=== PATIENT | male | born 1935 | race African-American/Black ===

== ENCOUNTER 2017-01-10 09:33 | Inpatient (IN) | payer MEDICARE, OTHER ==
[~2017-01-10] VITALS: Ht 170.2 cm; Wt 72.6 kg
[~2017-01-10 09:33] MED LIST: CEPHALEXIN500 MG ORAL; CORDARONE200 M1 ORAL; COUMADIN2.5 MG ORAL; FINASTERIDE5 MG PO; LOSARTAN POTAS100 MG; LOSARTAN POTASS25 MG ORAL; METOPROLOL TART50 M1; METOPROLOL TART50 M1 ORAL; MIDODRINE HCL5 MG ORAL; PRO-AMATINE10 MG ORAL; PRO-AMATINE2.5 MG ORAL; SIMVASTATIN20 MG; TAMSULOSIN HCL0.4 MG; WARFARIN SODIUM2 MG PO
[2017-01-10 10:40] VITALS: BP 193/92
[2017-01-10 11:02] LABS: BASOPHILS % (AUTO) 0.7 % (0.0-2.0); EOSINOPHILS % (AUTO) 0.3 % (0.0-3.0); LYMPHOCYTES % (AUTO) 14.8 % (20.0-45.0); MEAN CORPUSCULAR HEMOGLOBIN 30.8 PG (27.0-31.0); MEAN CORPUSCULAR HGB CONC 32.5 G/DL (32.0-36.0); MEAN CORPUSCULAR VOLUME 95 FL (80-99); MEAN PLATELET VOLUME 7.8 FL (6.5-10.1); MONOCYTES % (AUTO) 10.8 % (1.0-10.0); NEUTROPHILS % (AUTO) 73.5 % (45.0-75.0); PLATELET COUNT 164 K/UL (150-450); RED BLOOD COUNT 4.32 M/UL (4.70-6.10); RED CELL DISTRIBUTION WIDTH 12.9 % (11.6-14.8); WHITE BLOOD COUNT 7.3 K/UL (4.8-10.8)
[2017-01-10 11:04] LABS: INR 1.1 (0.9-1.1); PROTHROMBIN TIME 11.1 SEC (9.30-11.50)
[2017-01-10] MEDS ORDERED: UNOBMED (11:08)
[2017-01-10 11:10] LABS: ALANINE AMINOTRANSFERASE 9 U/L (3-41); ALBUMIN/GLOBULIN RATIO 1.1 (1.0-2.7); ANION GAP 15 (5-15); ASPARTATE AMINO TRANSFERASE 14 U/L (5-40); CALCIUM 9.2 mg/dL (8.6-10.2); CARBON DIOXIDE 27 mEQ/L (20-30); CHLORIDE 101 mEQ/L (98-107); CREATININE 1.1 mg/dL (0.7-1.2); HEMOLYSIS 6; LIPASE 11 U/L (< 60); POTASSIUM 3.6 mEQ/L (3.4-4.9); SODIUM 143 mEQ/L (135-145); TOTAL PROTEIN 6.9 g/dL (6.6-8.7); TROPONIN I < 0.30 ng/mL (<=0.30)
--- NOTE | 2017-01-10 11:40 | Emergency Room Report ---
History of Present Illness General Chief Complaint: Dizziness Source: Patient, Family Member, EMS Present Illness HPI Patient present with complaints of fall Initially unclear history paramedics reported patient was having dizziness Speaking to the family at this time She reports of the patient's had a questionable syncopal versus fall episode The family had made the patient's breakfast and come back into the room and found the patient on the ground Patient usually is able to become more ambulatory At this time require further assistance Patient here does have underlying significant dementia Otherwise no focal weakness History of present illness significantly limited Allergies: Coded Allergies: No Known Allergies (Unverified , 10/08/14) Patient History Past Medical History: see triage record Pertinent Family History: none Reviewed Nursing Documentation: PMH: Agreed, PSxH: Agreed Nursing Documentation-PMH Past Medical History Deferred: No Family Available Past Medical History: No History, Except For Hx Cardiac Problems: Yes Hx Hypertension: Yes Hx Pacemaker: Yes Hx Cancer: No Hx Gastrointestinal Problems: No Hx Neurological Problems: Yes Hx Dementia: Yes Hx Syncope: Yes Review of Systems All Other Systems: negative except mentioned in HPI Physical Exam Vital Signs Date Time Temp Pulse Resp B/P Pulse Ox O2 Delivery O2 Flow Rate FiO2 01/10/17 09:28 97.7 63 18 182/84 100 Room Air Sp02 EP Interpretation: reviewed, normal General Appearance: no apparent distress Head: normocephalic, atraumatic Eyes: bilateral eye EOMI, bilateral eye PERRL ENT: hearing grossly normal, normal pharynx, TMs + canals normal, uvula midline Neck: full range of motion, supple, no meningismus, no bony tend Respiratory: lungs clear, normal breath sounds, no rhonchi, no respiratory distress, no retraction, no accessory muscle use Cardiovascular #1: normal peripheral pulses, regular rate, rhythm, no edema, no gallop, no JVD, no murmur Gastrointestinal: normal bowel sounds, non tender, soft, no mass, no organomegaly, non-distended, no guarding, no hernia, no pulsatile mass, no rebound Genitourinary: no CVA tenderness Musculoskeletal: other - The patient does not follow commands but no obvious focal weakness Neurologic: responsive, sensory intact Psychiatric: mood/affect normal Skin: normal color, no rash, warm/dry, palpation normal Lymphatic: normal inspection, no adenopathy Medical Decision Making Diagnostic Impression: Primary Impression: Syncope Additional Impressions: Fall Pacemaker ER Course Patient is a fairly complex patient with multiple differential to consideration including but not limited to cardiac cardiopulmonary and vascular emergencies Patient at this time has a paced rhythm Blood pressure is appropriate Blood work baseline is appropriate Patient will require further inpatient care possible interrogation of the pacemaker and further eval Labs Test 01/10/17 10:20 01/10/17 11:38 White Blood Count 7.3 K/UL (4.8-10.8) Red Blood Count 4.32 M/UL (4.70-6.10) Hemoglobin 13.3 G/DL (14.2-18.0) Hematocrit 41.0 % (42.0-52.0) Mean Corpuscular Volume 95 FL (80-99) Mean Corpuscular Hemoglobin 30.8 PG (27.0-31.0) Mean Corpuscular Hemoglobin Concent 32.5 G/DL (32.0-36.0) Red Cell Distribution Width 12.9 % (11.6-14.8) Platelet Count 164 K/UL (150-450) Mean Platelet Volume 7.8 FL (6.5-10.1) Neutrophils (%) (Auto) 73.5 % (45.0-75.0) Lymphocytes (%) (Auto) 14.8 % (20.0-45.0) Monocytes (%) (Auto) 10.8 % (1.0-10.0) Eosinophils (%) (Auto) 0.3 % (0.0-3.0) Basophils (%) (Auto) 0.7 % (0.0-2.0) Prothrombin Time 11.1 SEC (9.30-11.50) Prothromb Time International Ratio 1.1 (0.9-1.1) Activated Partial Thromboplast Time 26 SEC (23-33) Sodium Level 143 mEQ/L (135-145) Potassium Level 3.6 mEQ/L (3.4-4.9) Chloride Level 101 mEQ/L (98-107) Carbon Dioxide Level 27 mEQ/L (20-30) Anion Gap 15 (5-15) Blood Urea Nitrogen 11 mg/dL (7-23) Creatinine 1.1 mg/dL (0.7-1.2) Estimat Glomerular Filtration Rate mL/min (>60) Glucose Level 107 mg/dL (74-106) Calcium Level 9.2 mg/dL (8.6-10.2) Total Bilirubin 0.4 mg/dL (0.0-1.2) Aspartate Amino Transf (AST/SGOT) 14 U/L (5-40) Alanine Aminotransferase (ALT/SGPT) 9 U/L (3-41) Alkaline Phosphatase 78 U/L (40-129) Total Creatine Kinase 118 U/L (38-174) Creatine Kinase MB 2.0 ng/mL (< 6.7) Creatine Kinase MB Relative Index 1.6 Troponin I < 0.30 ng/mL (<=0.30) Pro-B-Type Natriuretic Peptide 486 pg/mL (0-450) Total Protein 6.9 g/dL (6.6-8.7) Albumin 3.7 g/dL (3.5-5.2) Globulin 3.2 g/dL Albumin/Globulin Ratio 1.1 (1.0-2.7) Lipase 11 U/L (< 60) Urine Color Brown Urine Appearance Clear Urine pH 5 (4.5-8.0) Urine Specific [place] 1.025 (1.005-1.035) Urine Protein 2+ (NEGATIVE) Urine Glucose (UA) Negative (NEGATIVE) Urine Ketones 1+ (NEGATIVE) Urine Occult Blood 1+ (NEGATIVE) Urine Nitrite Negative (NEGATIVE) Urine Bilirubin 1+ (NEGATIVE) Urine Ictotest Negative Urine Urobilinogen 4 MG/DL (0.0-1.0) Urine Leukocyte Esterase 1+ (NEGATIVE) Urine RBC 2-4 /HPF (0 - 0) Urine WBC 0-2 /HPF (0 - 0) Urine Squamous Epithelial Cells Occasional /LPF Urine Bacteria Few /HPF (NONE) Urine Hyaline Casts 0-2 /LPF (NONE) Urine Mucus Few /LPF (NONE/OCC) EKG Diagnostic Results Rate: other Rhythm: other - paced ST Segments: no acute changes Rhythm Strip Diag. Results EP Interpretation: yes Rate: 60 Rhythm: no PVC's, no ectopy, other - paced Chest X-Ray Diagnostic Results EP Interpretation: Yes Findings: no consolidation, no effusion, no pneumothorax Number of Views: 1 CT/MRI/US Diagnostic Results CT/MRI/US Diagnostic Results : Impression CT head no acute disease Last Vital Signs Date Time Temp Pulse Resp B/P Pulse Ox O2 Delivery O2 Flow Rate FiO2 01/10/17 10:40 97.7 60 12 193/92 100 Room Air Status: improved Disposition: ADMITTED INPATIENT Condition: Serious Referrals: MEENA DOTSON (PCP) JOSE WAY D.O. Jan 10, 2017 11:40
--- NOTE | 2017-01-10 11:41 | Diagnostic Imaging Report ---
Indications: Dizziness and vertigo x3 days Technique: Spiral acquisitions obtained through the brain. Angled axial and coronal 5 x 5 mm slices were reconstructed. Total dose length product 1393 mGycm. CTDI vol(s) 7 mGy Comparison: None Findings: There is age-related enlargement of ventricles and extra-axial CSF spaces. Small focus of encephalomalacia is seen in the right posterior parietal lobe. No acute hemorrhage or edema. No mass effect or midline shift. Impression: Chronic and age-related changes, as described. Negative for acute intracranial bleed or mass effect The CT scanner at [facility] is accredited by the [employer] and the scans are performed using protocols designed to limit radiation exposure to as low as reasonably achievable to attain images of sufficient resolution adequate for diagnostic evaluation.
--- NOTE | 2017-01-10 11:45 | Diagnostic Imaging Report ---
Indication: Chest pain Technique: One view of the chest Comparison: none Findings: Patient is slightly rotated to the right. Lungs and pleural spaces are clear. Heart size is normal. Aorta is tortuous ectatic and calcified. Left chest pacemaker is again demonstrated. There is no significant change Impression: No acute process
[2017-01-10 11:54] LABS: APPEARANCE,URINE CLEAR; KETONES,URINE 1+ (NEGATIVE); LEUKOCYTE ESTERASE ,URINE 1+ (NEGATIVE); NITRITE,URINE NEGATIVE (NEGATIVE); PH,URINE 5 (4.5-8.0); PROTEIN,URINE 2+ (NEGATIVE); UROBILINOGEN,URINE 4 MG/DL (0.0-1.0)
[2017-01-10 12:03] LABS: BACTERIA,URINE FEW /HPF; SQUAMOUS EPITHELIAL CELL,UR OCCASIONAL /LPF (NONE/OCC); WBC,URINE 0-2 /HPF (0 - 0)
[2017-01-10 12:04] LABS: HYALINE CASTS, URINE 0-2 /LPF; ICTOTEST NEGATIVE; MUCUS,URINE FEW /LPF (NONE/OCC)
[2017-01-10 12:15] VITALS: BP 185/88
[2017-01-10 13:32] VITALS: BP 187/86
--- NOTE | 2017-01-10 15:53 | Diagnostic Imaging Report ---
Indication: PAIN, status post fall Technique: One view of the pelvis Comparison: None Findings: Bones are osteoporotic. No definite acute fractures. However, there is asymmetric rotation of the proximal femurs, somewhat raising concern for an occult fracture. No dislocations. Joint spaces are preserved. There are degenerative changes of the lumbosacral junction. The bottom of an inferior vena cava filter is incidentally noted Impression: No definite acute bony trauma. Note, however, that in elderly osteoporotic patients, nondisplaced hip or pelvic fractures can easily be occult. Asymmetric rotation of the proximal femurs also raises slight suspicion. Consider cross-sectional imaging if there is high clinical suspicion Osteoporosis Other findings as noted, including degenerative lumbar spondylosis, inferior vena cava filter
[2017-01-10 16:00] VITALS: BP 145/77
[2017-01-10] MEDS: Amiodarone 200mg tab ORAL SCH (16:49)
[2017-01-10] MEDS: Heparin 5000 units/ml inj SUBQ SCH ×2 (16:52→20:58)
[2017-01-10 20:00] VITALS: BP 163/102
[2017-01-10] MEDS: Tamsulosin 0.4mg cap ORAL SCH (20:54)
--- NOTE | 2017-01-10 22:59 | History and Physical Report ---
DATE OF ADMISSION: 01/10/2017 CHIEF COMPLAINT: Syncope, hypertensive urgency, and encephalopathy. HISTORY OF PRESENT ILLNESS: The patient is a pleasant 81-year-old male. He has a history of hypertensive heart disease, conduction system disease, status post pacemaker. He has a history of orthostatic hypotension and dementia. He presented from home with complaints of a syncopal episode. The patient is a poor historian. According to reports from the emergency room, the patient, and the paramedics, the patient had an episode of dizziness while talking with family members. He apparently had a possible syncopal episode. He was found on the ground. On evaluation in the emergency room, the patient was markedly hypertensive. He had a head CT, which showed only chronic changes, but no acute stroke. The patient on EKG had a paced rhythm. In light of his prior cardiac history, he is now admitted for further evaluation and care. PAST MEDICAL HISTORY: As above. PAST SURGICAL HISTORY: Pacemaker. CURRENT MEDICATIONS: Reconciled and reviewed. ALLERGIES: None. FAMILY HISTORY: None. SOCIAL HISTORY: Negative for tobacco, ethanol, or drugs. REVIEW OF SYSTEMS: General: No fevers or chills. HEENT: No headaches or visual changes. Cardiopulmonary: No chest pain or shortness of breath. History of conduction system disease, status post pacemaker. Gastrointestinal: No nausea or vomiting. Genitourinary: No urgency or frequency. Musculoskeletal: No joint pain or swelling. Neurologic: No evidence of seizures. PHYSICAL EXAMINATION: VITAL SIGNS: Temperature 98 degrees, blood pressure 193/92, pulse 60, and respirations 12. GENERAL: The patient is in no apparent distress. He is awake, alert, but is confused. Oriented only to person. HEENT: His pupils are equal, round, and reactive to light. Oropharynx is clear. Mucous membranes are moist. NECK: Supple. HEART: Regular rate and rhythm. LUNGS: Clear. ABDOMEN: Soft, nontender, and nondistended. EXTREMITIES: Without clubbing, cyanosis, or edema. LABORATORY DATA: White count 7, hemoglobin 13, hematocrit 41, and platelets of 164,000. Sodium 143, potassium 3.6, creatinine of 1.1, and glucose 107. Urine shows 0 to 2 WBCs. ASSESSMENT: This is a pleasant male admitted with complaints of syncope. 1. Syncope. 2. History of conduction system disease, status post pacemaker. 3. History of orthostasis. 4. Hypertensive emergency. 5. Dementia. PLAN: Admit to monitored bed. Cardiology consultation. Interrogate pacemaker. Monitor orthostatics. Consider hydration. We will continue outpatient cardiac regimen. The p.r.n. blood pressure medicines to control blood pressure. Zen Dunn M.D. DR: NOAH JOB#: [id number] CC:
[2017-01-10] MEDS ORDERED: NS w/KCl 20mEq 1,000 ML IV SCH (23:00)
[2017-01-11 00:11] VITALS: BP 152/86
--- NOTE | 2017-01-11 03:58 | Consultation ---
DATE OF CONSULTATION: January 10, 2017 Cardiology Consultation CONSULTING PHYSICIAN: Lane Liang M.D. REASON FOR CONSULTATION: Syncope in the setting of cardiac defibrillator. HISTORY: Known to me from prior care. This is an 81-year-old male with hypertensive cardiomyopathy and history of orthostatic hypotension. In addition, he has a history of sustained ventricular tachycardia and sudden cardiac and as a result has an implanted cardiac defibrillator. The patient had been quite compliant with medications and regular follow-ups. He was brought into my office regularly by his son, but suddenly over the last year has missed all his appointments and his son has been unable to get him to leave the house. Further the son himself became ill recently and is even less attuned to his father, although the patient's [id number] continues to be active. The patient was found down on the ground at home by his [id number] today. He was alert and was brought to the emergency room. It is unclear why he fell if he lost consciousness or if he had any shocks from his defibrillator device. He is awake and interactive, but unable to give much reliable details. PAST MEDICAL HISTORY: Cardiac defibrillator [employer]-type, hypertensive heart disease, systolic and diastolic congestive heart failure, paroxysmal ventricular tachycardia, orthostatic hypotension, hypertension with hypertensive heart disease, hyperlipidemia, osteoarthritis, degenerative disk disease, and cerebrovascular disease with dementia. MEDICATIONS: Prior to admission, reviewed and reconciled, however, compliance is not clear. ALLERGIES: None known. SOCIAL HISTORY: Negative for smoking, alcohol, or substance abuse. FAMILY HISTORY: Notable for stroke in his son. REVIEW OF SYSTEMS: Cannot be reliably obtained from the patient, however, pertinent data from prior records as outlined above. Prior echocardiogram has revealed reduced ejection fraction in the range of 35% with global hypokinesis and mild degenerative valve disease with regurgitation. The patient's [employer] device was implanted in 2010. PHYSICAL EXAMINATION: GENERAL: Awake and alert, but withdrawn. VITAL SIGNS: Blood pressure 182/84, heart rate 63, and respiratory rate 16, and afebrile. There is a 20 mmHg to 25 mmHg drop in blood pressure from lying to standing position. HEENT: Conjunctivae are pink. Sclerae are anicteric. Oropharynx clear. Mucous membrane is dry. NECK: Supple. LUNGS: Clear. CARDIAC: Regular rhythm rate. Normal S1 and S2. A 1/6 systolic apical murmur. ABDOMEN: Soft and nontender. EXTREMITIES: Trace edema. LABORATORY AND DIAGNOSTIC DATA: EKG reveals atrial pacing with nonspecific ST changes. Troponin negative. Chest x-ray, cardiomegaly. No acute process. CAT scan of the brain, no active disease, but diffuse cerebrovascular disease. White count 7.3, hemoglobin 13.3. Potassium 3.6, BUN 11, creatinine 1.1 glucose 107. Troponin negative. Pronatriuretic peptide 486 and albumin 3.7. IMPRESSION: 1. Orthostatic syncope. 2. Cardiac defibrillator. 3. Hypertensive cardiomyopathy. 4. Cerebrovascular disease. 5. Chronic systolic and diastolic congestive heart failure. 6. History of ventricular arrhythmias. PLAN: Hydration, cautious use of antihypertensive therapy, review midodrine defibrillator interrogation and metabolic profile. Lane Liang M.D. DR: Tammie JOB#: [id number] CC: NIURKA
[2017-01-11 04:13] VITALS: BP 141/70
[2017-01-11 08:00] VITALS: BP 113/67
[2017-01-11] MEDS: Amiodarone 200mg tab ORAL SCH (08:07)
[2017-01-11] MEDS: Heparin 5000 units/ml inj SUBQ SCH ×2 (08:08→20:06)
[2017-01-11 10:24] LABS: ALANINE AMINOTRANSFERASE 12 U/L (3-41); ANION GAP 15 (5-15); ASPARTATE AMINO TRANSFERASE 20 U/L (5-40); CALCIUM 9.2 mg/dL (8.6-10.2); CARBON DIOXIDE 25 mEQ/L (20-30); CHLORIDE 105 mEQ/L (98-107); CREATININE 1.1 mg/dL (0.7-1.2); HEMOLYSIS 4; POTASSIUM 4.1 mEQ/L (3.4-4.9); SODIUM 145 mEQ/L (135-145); TOTAL PROTEIN 6.4 g/dL (6.6-8.7)
[2017-01-11 10:27] LABS: TROPONIN I < 0.30 ng/mL (<=0.30)
--- NOTE | 2017-01-11 10:39 | General Progress Note ---
Assessment/Plan Problem List: (1) Orthostatic syncope ICD Codes: I95.1 - Orthostatic syncope SNOMED: 215648786 (2) Syncope ICD Codes: R55 - Syncope and collapse SNOMED: 194179615 (3) Arrhythmia ICD Codes: I49.9 - Cardiac arrhythmia, unspecified SNOMED: 82651787 (4) Gastritis ICD Codes: K29.70 - Gastritis SNOMED: 8716054 (5) Congestive cardiac failure ICD Codes: I50.9 - Heart failure, unspecified SNOMED: 49679637 (6) Pacemaker ICD Codes: Z95.0 - Pacemaker SNOMED: 677700931 Status: stable Assessment/Plan ivf monitor orthostatics midodrine tele d/w son poc pt/ot Subjective ROS Limited/Unobtainable: No Constitutional: Reports: weakness HEENT: Reports: no symptoms Cardiovascular: Reports: no symptoms Respiratory: Reports: no symptoms Gastrointestinal/Abdominal: Reports: no symptoms Genitourinary: Reports: no symptoms Neurologic/Psychiatric: Reports: anxiety, pre-existing deficit Endocrine: Reports: no symptoms Hematologic/Lymphatic: Reports: no symptoms Allergies: Coded Allergies: No Known Allergies (Unverified , 10/08/14) All Systems: reviewed and negative except above Subjective no syncope. tele- paced. +orthostatics. confused at night. has sitter Objective Last 24 Hour Vital Signs Date Time Temp Pulse Resp B/P Pulse Ox O2 Delivery O2 Flow Rate FiO2 01/11/17 08:10 86 01/11/17 08:05 73 01/11/17 08:00 68 01/11/17 08:00 97.0 68 20 113/67 99 Room Air 01/11/17 04:26 68 70 01/11/17 04:13 98.0 68 20 141/70 99 Room Air 01/11/17 04:00 69 01/11/17 00:11 97.1 68 20 152/86 99 Room Air 01/11/17 00:00 61 01/10/17 20:54 163/102 01/10/17 20:00 97.0 79 18 163/102 98 Room Air 01/10/17 20:00 75 01/10/17 19:52 74 80 109 01/10/17 16:00 97.0 75 18 145/77 99 Room Air 01/10/17 16:00 78 01/10/17 14:40 97.7 62 14 187/86 100 Room Air 01/10/17 14:39 187/86 01/10/17 13:32 97.7 62 14 187/86 100 Room Air 01/10/17 12:15 97.7 67 12 185/88 100 Room Air 01/10/17 10:40 97.7 60 12 193/92 100 Room Air Intake and Output 01/10/17 01/11/17 19:00 07:00 Intake Total 500 ml 555 ml Output Total 300 ml Balance 500 ml 255 ml Intake Oral 180 ml IV Total 375 ml Other 500 ml Output Urine Total 300 ml # Voids 1 # Bowel Movements 1 1 Laboratory Tests 01/10/17 11:38: Urine Color Brown, Urine Appearance Clear, Urine pH 5, Urine Specific [place] 1.025, Urine Protein 2+H, Urine Glucose (UA) Negative, Urine Ketones 1+H, Urine Occult Blood 1+H, Urine Nitrite Negative, Urine Bilirubin 1+H, Urine Ictotest Negative, Urine Urobilinogen 4H, Urine Leukocyte Esterase 1+H, Urine RBC 2-4H, Urine WBC 0-2, Urine Squamous Epithelial Cells Occasional, Urine Bacteria Few, Urine Hyaline Casts 0-2H, Urine Mucus FewH 01/11/17 09:10: Sodium Level 145, Potassium Level 4.1, Chloride Level 105, Carbon Dioxide Level 25, Anion Gap 15, Blood Urea Nitrogen 10, Creatinine 1.1, Estimat Glomerular Filtration Rate , Glucose Level 113H, Calcium Level 9.2, Total Bilirubin 0.7, Aspartate Amino Transf (AST/SGOT) 20, Alanine Aminotransferase (ALT/SGPT) 12, Alkaline Phosphatase 76, Troponin I < 0.30, Total Protein 6.4L, Albumin 3.3L, Globulin 3.1, Albumin/Globulin Ratio 1.0, Vitamin B12 Level [Pending], Folate [ Pending], Thyroid Stimulating Hormone (TSH) [Pending], Cortisol [Pending] Height (Feet): 5 Height (Inches): 7.00 Weight (Pounds): 160 General Appearance: WD/WN, alert Neck: supple Cardiovascular: normal rate Respiratory/Chest: chest wall non-tender, lungs clear, normal breath sounds, no respiratory distress Abdomen: normal bowel sounds, non tender, soft, no organomegaly Edema: no edema noted Arm (L), no edema noted Arm (R), no edema noted Leg (L), no edema noted Leg (R), no edema noted Pedal (L), no edema noted Pedal (R), no edema noted Generalized Neurologic: sr. operations manager II-XII grossly normal, no motor/sensory deficits, alert, oriented x 3, disoriented Skin: normal pigmentation MEENA DOTSON Jan 11, 2017 10:39
[2017-01-11 11:42] VITALS: BP 134/74
[2017-01-11 16:00] VITALS: BP 141/74
[2017-01-11 20:00] VITALS: BP 149/72
[2017-01-11] MEDS: Tamsulosin 0.4mg cap ORAL SCH (20:04)
[2017-01-12 00:21] VITALS: BP 153/80
--- NOTE | 2017-01-12 02:48 | Progress Note ---
DATE: 01/11/2017 CARDIOLOGY PROGRESS NOTE: SUBJECTIVE: The patient continues to have orthostatic blood pressure changes of up to 20 mmHg. He is confused. He does get up out of bed without assistance if not watch closely and has very poor judgment about his fall risk. he has not had any episodes of loss of consciousness noted. OBJECTIVE: VITAL SIGNS: Blood pressure ranging from 113/67 to 163/102, heart rate 61 to 86, respiratory rate 20, and afebrile. HEENT: Temporal wasting. Conjunctivae are pink. Oropharynx clear. NECK: Supple. LUNGS: Clear. CARDIAC: Regular rhythm and rate. Normal S1, S2. A 1/6 early systolic apical murmur. ABDOMEN: Soft. EXTREMITIES: No edema. LABORATORY DATA: BUN 10 and creatinine 1.1. Albumin 3.3. TSH 2.4. B12 447. Folate and cortisol pending. IMPRESSION: 1. Orthostatic hypotension. 2. Orthostatic syncope. 3. Cardiac defibrillator. 4. History of sustained ventricular tachycardia and sudden cardiac . 5. Hypertensive cardiomyopathy. 6. History of malignant range hypertension. 7. Cerebrovascular disease with dementia. 8. Mild protein-calorie malnutrition. PLAN: Monitor standing blood pressure before up titration of medications. Follow up cortisol level. Titrate midodrine. Continue antiarrhythmic therapy with amiodarone. Physical and occupational therapy assessments. Lane Liang M.D. DR: Carrie JOB#: [id number] CC:
[2017-01-12 03:58] VITALS: BP 142/77
[2017-01-12 07:48] VITALS: BP 149/71
[2017-01-12] MEDS: Amiodarone 200mg tab ORAL SCH (08:06)
[2017-01-12] MEDS: Heparin 5000 units/ml inj SUBQ SCH ×2 (08:07→21:58)
--- NOTE | 2017-01-12 10:06 | General Progress Note ---
Assessment/Plan Problem List: (1) Orthostatic syncope ICD Codes: I95.1 - Orthostatic syncope SNOMED: 177533009 (2) Syncope ICD Codes: R55 - Syncope and collapse SNOMED: 903678747 (3) Arrhythmia ICD Codes: I49.9 - Cardiac arrhythmia, unspecified SNOMED: 26667653 (4) Gastritis ICD Codes: K29.70 - Gastritis SNOMED: 4224537 (5) Congestive cardiac failure ICD Codes: I50.9 - Heart failure, unspecified SNOMED: 04104223 (6) Pacemaker ICD Codes: Z95.0 - Pacemaker SNOMED: 263194019 Status: stable, progressing Assessment/Plan dc ivf charity hose monitor orthostatics midodrine tele d/w son poc. requesting snf [place]- pt was there before pt/ot Subjective ROS Limited/Unobtainable: No Constitutional: Reports: malaise, weakness HEENT: Reports: no symptoms Cardiovascular: Reports: no symptoms Respiratory: Reports: no symptoms Gastrointestinal/Abdominal: Reports: no symptoms Genitourinary: Reports: no symptoms Neurologic/Psychiatric: Reports: pre-existing deficit Endocrine: Reports: no symptoms Hematologic/Lymphatic: Reports: no symptoms Allergies: Coded Allergies: No Known Allergies (Unverified , 10/08/14) All Systems: reviewed and negative except above Subjective no syncope. tele- paced. orthostatics better. confused at night. has sitter. no arrythmia. unsteady gait. Objective Last 24 Hour Vital Signs Date Time Temp Pulse Resp B/P Pulse Ox O2 Delivery O2 Flow Rate FiO2 01/12/17 08:05 67 149/71 01/12/17 07:48 97.3 67 18 149/71 95 Room Air 01/12/17 07:43 69 01/12/17 04:00 67 01/12/17 03:58 97.9 75 19 142/77 94 Room Air 01/12/17 00:21 98.5 68 20 153/80 96 Room Air 01/12/17 00:00 67 01/11/17 20:00 71 01/11/17 20:00 97.9 68 18 149/72 99 Room Air 01/11/17 17:47 68 141/74 01/11/17 16:00 63 01/11/17 16:00 96.3 68 17 141/74 100 01/11/17 12:00 62 01/11/17 11:42 97.0 60 18 134/74 95 Room Air Intake and Output 01/11/17 01/12/17 19:00 07:00 Intake Total 1780 ml 1150 ml Output Total 200 ml 500 ml Balance 1580 ml 650 ml Intake Oral 880 ml 400 ml IV Total 900 ml 750 ml Output Urine Total 200 ml 500 ml # Voids 3 1 Height (Feet): 5 Height (Inches): 7.00 Weight (Pounds): 160 General Appearance: WD/WN, alert Neck: supple Cardiovascular: normal rate, regular rhythm Respiratory/Chest: chest wall non-tender, lungs clear, normal breath sounds, no respiratory distress Abdomen: normal bowel sounds, non tender, soft, no organomegaly Edema: no edema noted Arm (L), no edema noted Arm (R), no edema noted Leg (L), no edema noted Leg (R), no edema noted Pedal (L), no edema noted Pedal (R), no edema noted Generalized Neurologic: eviction specialist II-XII grossly normal, no motor/sensory deficits, abnormal gait MEENA DOTSON Jan 12, 2017 10:06
[2017-01-12 11:41] VITALS: BP 140/72
[2017-01-12 13:43] LABS: CORTISOL LC 16.2 ug/dL (.)
[2017-01-12 16:00] VITALS: BP 151/70
--- NOTE | 2017-01-12 18:38 | Cardiology Report ---
APPROVED REPORT EKG Measurement Heart [id number] NV [id number] Atrial pacing Nonspecific ST and T wave abnormality Abnormal ECG
[2017-01-12 20:00] VITALS: BP 157/64
--- NOTE | 2017-01-12 20:28 | Progress Note ---
DATE: 01/12/2017 CARDIOLOGY PROGRESS NOTE SUBJECTIVE: The patient without chest pain or shortness of breath. He remains confused. No loss of consciousness. No shocks from his defibrillator device. Blood pressure parameters reviewed. Orthostatic variation is somewhat decreasing and overall blood pressure control today has improved. OBJECTIVE: VITAL SIGNS: Blood pressure 151/70, pulse 77, respirations 19, and afebrile. Oxygen saturation on room air 94% to 100%. NECK: Supple. LUNGS: Clear. CARDIAC: Regular rhythm and rate. Normal S1 and S2. ABDOMEN: Soft. EXTREMITIES: With no edema. LABORATORY DATA: Folate and cortisol levels were within normal limits. IMPRESSION: 1. Orthostatic syncope. 2. Orthostatic hypotension. 3. Malignant range hypertension, improved. 4. Hypertensive heart disease. 5. Hypertensive cardiomyopathy. 6. Mild protein-calorie malnutrition. 7. Cerebrovascular disease with dementia. 8. Functional decline. 9. Fall risk. 10. History of ventricular tachycardia. 11. Mild dehydration and hypernatremia PLAN: 1. Continue titration of cardiovascular medications. 2. Maintain midodrine. 3. Amiodarone for suppression of ventricular arrhythmias. 4. Hypotonic fluid hydration. Lane Liang M.D. DR: DEREK JOB#: [id number] CC:
[2017-01-12] MEDS: Tamsulosin 0.4mg cap ORAL SCH (21:58)
[2017-01-13] VITALS: BP 138/89
[2017-01-13 04:00] VITALS: BP 145/78
[2017-01-13 08:00] VITALS: BP 122/61
[2017-01-13] MEDS ORDERED: NORVASC2.5 MG ORAL (08:22)
[2017-01-13] MEDS: Amiodarone 200mg tab ORAL SCH (08:57)
[2017-01-13] MEDS: Heparin 5000 units/ml inj SUBQ SCH (08:58)
[2017-01-13 11:51] VITALS: BP 128/71
[2017-01-13 16:12] VITALS: BP 132/62
[2017-01-13 17:28] VITALS: BP 132/62
--- NOTE | 2017-01-13 23:38 | Discharge Summary ---
DATE OF ADMISSION: 01/10/2017 DATE OF DISCHARGE: 01/13/2017 ADMISSION DIAGNOSES: 1. Syncope. 2. History of orthostatic hypotension. 3. Paroxysmal atrial fibrillation. 4. Dementia. 5. Benign prostatic hypertrophy. 6. Hypertensive heart disease. 7. History of conduction system disease status post pacemaker. DISCHARGE DIAGNOSES: 1. Syncope. 2. History of orthostatic hypotension. 3. Paroxysmal atrial fibrillation. 4. Dementia. 5. Benign prostatic hypertrophy. 6. Hypertensive heart disease. 7. History of conduction system disease status post pacemaker. HOSPITAL COURSE: The patient is a pleasant male admitted with complaints of syncopal episode. He was in home. He was found on the floor by his [id number]. He was brought to the emergency room. There, initial workup including a head CT was unremarkable. Enzymes and EKG were all also obtained. The patient was admitted to a monitored bed. His pacemaker was checked and was functioning appropriately. The patient was noted to be significantly orthostatic. He was hydrated with intravenous fluids. He was admitted here then he had ERICK hose placed. He had no further signs or symptoms of dizziness and his orthostatics were improved. He will be discharged to long term facility. Special recommendations from the physical therapist. Family selected a senior care that he has been treated in the past. The patient will be followed up in one to two days. DISCHARGE MEDICATIONS: Please see discharge medication list for discharge medications. DIET: Cardiac diet. ACTIVITY: Ad-Aury. FOLLOWUP: The patient will follow up in one to two days in the long term facility. Zen Dunn M.D. DR: Karla JOB#: [id number] CC:
--- NOTE | 2017-01-14 00:38 | Progress Note ---
DATE: 01/13/2017 CARDIOLOGY PROGRESS NOTE: SUBJECTIVE AND OBJECTIVE: GENERAL: The patient's blood pressure has improved. Orthostatic changes have decreased. He remains confused. He continues to be at fall risk. VITAL SIGNS: Blood pressure is 122/71, pulse rate 64, and respiratory rate 18. NECK: Supple. LUNGS: Clear. CARDIAC: Regular. Normal S1. Paradoxically split S2. A 1/6 systolic murmur at the apex. ABDOMEN: Soft. EXTREMITIES: No edema. SKIN: ICD pocket site is clean and dry in the left chest wall. IMPRESSION: 1. Orthostatic syncope. 2. Hypovolemia. 3. Paroxysmal atrial fibrillation. 4. Hypertensive heart disease. 5. Cardiomyopathy with history of sudden cardiac . 6. Paroxysmal ventricular tachycardia. 7. Cardiac defibrillator. PLAN: 1. Transfer to a residential facility for rehabilitation. 2. Continue amiodarone at high dose for depression and ventricular tachycardia. Defibrillator was interrogated and noted functioning appropriately. 3. Titrate antihypertensive. 4. Continue midodrine. 5. Orthostatic precautions. Lane Liang M.D. DR: Donte JOB#: [id number] CC:
--- NOTE | 2017-01-16 11:21 | Cardiology Report ---
APPROVED REPORT EXAM: Two-dimensional and M-mode echocardiogram with Doppler and color Doppler. INDICATION Arrhythmia Technically difficult study due to poor acoustic windows. M-mode measurements not obtainable due to cardiac position. Normal left ventricular chamber size, systolic function and wall motion. Left ventricular ejection fraction estimated to be 55-60%. No evidence of left ventricular hypertrophy. Small posterior pericardial effusion. Mild bi-atrial enlargement by 2D. Focal aortic valve sclerosis with adequate cusp excursion Thickened mitral valve leaflets with normal excursion. Mild mitral annulus and aortic root calcification. Pulmonic valve not well visualized. Normal tricuspid valve structure. IVC not obtainable. Mobile IAS seen moving from left to right. A color flow and spectral Doppler study was performed and revealed: No aortic regurgitation. Severe mitral regurgitation. Left ventricular diastolic dysfunction grade 1. No tricuspid regurgitation.
== END 2017-01-13 19:05 | DRG 312 ==
LOC: EDBD 09:33 → EMR 10:28 → 4W 10:32 → EDBEDREQ 11:09 → 2E 15:05
DX: I95.1 Orthostatic hypotension (principal); E87.0 Hyperosmolality and hypernatremia; I47.2 Ventricular tachycardia; F01.50 Vascular dementia, unspecified severity, without behavioral disturbance, psychotic disturbance, mood disturbance, and anxiety; I11.0 Hypertensive heart disease with heart failure; I50.42 Chronic combined systolic (congestive) and diastolic (congestive) heart failure; E86.0 Dehydration; I48.0 Paroxysmal atrial fibrillation; E44.1 Mild protein-calorie malnutrition; I16.1 Hypertensive emergency; E78.5 Hyperlipidemia, unspecified; M19.90 Unspecified osteoarthritis, unspecified site; Z95.810 Presence of automatic (implantable) cardiac defibrillator; Z91.81 History of falling; Z68.25 Body mass index [BMI] 25.0-25.9, adult
CPT/HCPCS: 36415; 70450; 71010; 72170; 80053; 81003; 82533; 82550; 82553; 82607; 82746; 83690; 83880; 84443; 84484; 85025; 85610; 85730; 93005; 93306

== ENCOUNTER 2017-04-02 08:23 | Inpatient (IN) | payer MEDICARE ==
[~2017-04-02] VITALS: Ht 180.3 cm; Wt 74.8 kg
[~2017-04-02 08:23] MED LIST changes: +NORVASC2.5 MG ORAL; +UNOBMED
[2017-04-02 08:30] VITALS: BP 159/79
--- NOTE | 2017-04-02 09:21 | Emergency Room Report ---
History of Present Illness General Chief Complaint: Generalized Weakness Source: EMS Present Illness HPI 82-year-old male presents to ED for evaluation. Per EMS patient states he feels weak in his legs. Unclear who called 911. Upon arrival patient states he does not feel weak. States he to walk without difficulty. Patient is not sure while he is here. Patient states he lives at home with his parents. States they are in their 60s, he is in his 40s. Patient has history of dementia. Denies any fevers or chills. Denies chest pain shortness of breath. No other aggravating relieving factors. Denies any other associated symptoms Allergies: Coded Allergies: No Known Allergies (Unverified , 10/08/14) Patient History Past Medical History: HTN, dementia, psych hx Past Surgical History: pacemaker Pertinent Family History: none Social History: Denies: alcohol use, drug use, smoking Immunizations: UTD Reviewed Nursing Documentation: PMH: Agreed, PSxH: Agreed Nursing Documentation-PMH Past Medical History: No History, Except For Hx Cardiac Problems: Yes Hx Hypertension: Yes Hx Pacemaker: Yes - Left upper chest Hx Cancer: Yes Hx Gastrointestinal Problems: No History Of Psychiatric Problem: Yes - alzheimers Hx Neurological Problems: Yes Hx Dementia: Yes Hx Alzheimer's Disease: Yes Hx Syncope: Yes Review of Systems All Other Systems: negative except mentioned in HPI Physical Exam Vital Signs Date Time Temp Pulse Resp B/P Pulse Ox O2 Delivery O2 Flow Rate FiO2 04/02/17 08:19 97.9 76 18 149/76 98 Room Air Sp02 EP Interpretation: reviewed, normal General Appearance: no apparent distress, alert, GCS 15, non-toxic Head: normocephalic, atraumatic Eyes: bilateral eye PERRL, bilateral eye normal inspection ENT: hearing grossly normal, normal pharynx, no angioedema, normal voice Neck: full range of motion, supple/symm/no masses Respiratory: chest non-tender, lungs clear, normal breath sounds, speaking full sentences Cardiovascular #1: regular rate, rhythm, no edema Cardiovascular #2: 2+ carotid (R), 2+ carotid (L), 2+ radial (R), 2+ radial (L) , 2+ dorsalis pedis (R), 2+ dorsalis pedis (L) Gastrointestinal: normal bowel sounds, non tender, soft, non-distended, no guarding, no rebound Rectal: deferred Genitourinary: normal inspection, no CVA tenderness Musculoskeletal: back normal, gait/station normal, normal range of motion, non- tender, calf tenderness Neurologic: alert, oriented x3, responsive, motor strength/tone normal, sensory intact, speech normal Psychiatric: mood/affect normal, no suicidal/homicidal ideation Reflexes: 3+ bicep (R), 3+ bicep (L), 3+ tricep (R), 3+ tricep (L), 3+ knee (R) , 3+ knee (L) Skin: normal color, no rash, warm/dry, well hydrated Lymphatic: no adenopathy Medical Decision Making Diagnostic Impression: Primary Impression: Episode of generalized weakness Additional Impressions: Altered level of consciousness ARF (acute renal failure) Qualified Codes: N17.9 - Acute kidney failure, unspecified ER Course Hospital Course 82-year-old male presents to ED for evaluation. Here for evaluation of weakness. Patient does not remember why he is here Differential diagnoses include: SD/unstable angina, arrythmia, dehydration, CVA/ TIA Clinical course Patient placed on stretcher. on panel monitor. After initial history and physical I ordered labs, EKG, IVFs, CT Brain labs reviewed- no leukocytosis, hemoglobin/hematocrit ok, Cr 1.3, troponins negative EKG- NSr, no acute changes interpreted by me CT brain-unremarkable Discussed case with the family. Patient was admitted here in December and [facility] Patient was there for a few weeks and discharged to home. Patient lives with the family states that yesterday patient had a fall and hit his head. Patient normally ambulates with a walker. Patient was sitting on the toilet this morning and said he could not get up bc he felt too weak Case discussed with Dr. Dotson and he agreed to accept the patient to his service for further care and support I. I feel this is a highly complex case requiring extensive working including EKG/Rhythm strip, Xray/CT/US, Blood/urine lab work, repeat exams while in ED, and administration of strong opiates/narcotics for pain control, admission to hospital or close patient follow up. Diagnosis - episode of generalized weakness, ALOC, ARF admitted to floor in serious condition Labs Test 04/02/17 09:25 White Blood Count 6.7 K/UL (4.8-10.8) Red Blood Count 4.26 M/UL (4.70-6.10) Hemoglobin 12.9 G/DL (14.2-18.0) Hematocrit 40.5 % (42.0-52.0) Mean Corpuscular Volume 95 FL (80-99) Mean Corpuscular Hemoglobin 30.4 PG (27.0-31.0) Mean Corpuscular Hemoglobin Concent 31.9 G/DL (32.0-36.0) Red Cell Distribution Width 13.8 % (11.6-14.8) Platelet Count 142 K/UL (150-450) Mean Platelet Volume 7.3 FL (6.5-10.1) Neutrophils (%) (Auto) 75.6 % (45.0-75.0) Lymphocytes (%) (Auto) 12.9 % (20.0-45.0) Monocytes (%) (Auto) 8.3 % (1.0-10.0) Eosinophils (%) (Auto) 2.6 % (0.0-3.0) Basophils (%) (Auto) 0.7 % (0.0-2.0) Sodium Level 143 mEQ/L (135-145) Potassium Level 4.0 mEQ/L (3.4-4.9) Chloride Level 103 mEQ/L (98-107) Carbon Dioxide Level 28 mEQ/L (20-30) Anion Gap 12 (5-15) Blood Urea Nitrogen 10 mg/dL (7-23) Creatinine 1.3 mg/dL (0.7-1.2) Estimat Glomerular Filtration Rate mL/min (>60) Glucose Level 93 mg/dL (74-106) Calcium Level 9.1 mg/dL (8.6-10.2) Total Bilirubin 0.7 mg/dL (0.0-1.2) Aspartate Amino Transf (AST/SGOT) 11 U/L (5-40) Alanine Aminotransferase (ALT/SGPT) 9 U/L (3-41) Alkaline Phosphatase 88 U/L (40-129) Total Creatine Kinase 34 U/L (38-174) Creatine Kinase MB < 1.5 ng/mL (< 6.7) Creatine Kinase MB Relative Index 4.4 Troponin I < 0.30 ng/mL (<=0.30) Total Protein 6.9 g/dL (6.6-8.7) Albumin 3.6 g/dL (3.5-5.2) Globulin 3.3 g/dL Albumin/Globulin Ratio 1.0 (1.0-2.7) Salicylates Level < 1 mg/dL (10-30) Acetaminophen Level < 10 ug/mL (10-30) Serum Alcohol < 10 mg/dL EKG Diagnostic Results Rate: normal Rhythm: NSR ST Segments: other - LVH ASA given to the pt in ED: No CT/MRI/US Diagnostic Results CT/MRI/US Diagnostic Results : Imaging Test Ordered: CT Head Impression no acute process Last Vital Signs Date Time Temp Pulse Resp B/P Pulse Ox O2 Delivery O2 Flow Rate FiO2 04/02/17 08:19 97.9 76 18 149/76 98 Room Air Status: improved Disposition: ADMITTED INPATIENT Condition: Serious Referrals: MEENA DOTSON (PCP) CAREY LY M.D. Apr 02, 2017 09:21
[2017-04-02 09:47] LABS: BASOPHILS % (AUTO) 0.7 % (0.0-2.0); EOSINOPHILS % (AUTO) 2.6 % (0.0-3.0); LYMPHOCYTES % (AUTO) 12.9 % (20.0-45.0); MEAN CORPUSCULAR HEMOGLOBIN 30.4 PG (27.0-31.0); MEAN CORPUSCULAR HGB CONC 31.9 G/DL (32.0-36.0); MEAN CORPUSCULAR VOLUME 95 FL (80-99); MEAN PLATELET VOLUME 7.3 FL (6.5-10.1); MONOCYTES % (AUTO) 8.3 % (1.0-10.0); NEUTROPHILS % (AUTO) 75.6 % (45.0-75.0); PLATELET COUNT 142 K/UL (150-450); RED BLOOD COUNT 4.26 M/UL (4.70-6.10); RED CELL DISTRIBUTION WIDTH 13.8 % (11.6-14.8); WHITE BLOOD COUNT 6.7 K/UL (4.8-10.8)
[2017-04-02 09:56] LABS: ACETAMINOPHEN < 10 ug/mL (10-30); ALANINE AMINOTRANSFERASE 9 U/L (3-41); ALCOHOL < 10 mg/dL; ANION GAP 12 (5-15); ASPARTATE AMINO TRANSFERASE 11 U/L (5-40); CALCIUM 9.1 mg/dL (8.6-10.2); CARBON DIOXIDE 28 mEQ/L (20-30); CHLORIDE 103 mEQ/L (98-107); CREATININE 1.3 mg/dL (0.7-1.2); HEMOLYSIS 7; SODIUM 143 mEQ/L (135-145); TOTAL PROTEIN 6.9 g/dL (6.6-8.7)
--- NOTE | 2017-04-02 10:01 | Diagnostic Imaging Report ---
Indications: Altered mental status Technique: Continuous helical CT imaging of the brain was performed with automatic exposure control on a Siemens sensation [address] scanner. Axial and coronal images were reconstructed at 5 mm slice thickness and interval. 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 No evidence of mass or hemorrhage, other attenuation abnormality, mass effect, midline shift, hydrocephalus or increased intracranial pressure. Bone window images are unremarkable. Visualized paranasal sinuses and mastoid air cells are clear. IMPRESSION: No evidence of acute intracranial pathology, unchanged Stable chronic changes as described. The CT scanner at [facility] is accredited by the [employer] and the scans are performed using protocols designed to limit radiation exposure to as low as reasonably achievable to attain images of sufficient resolution adequate for diagnostic evaluation.
[2017-04-02 10:07] LABS: CKMB < 1.5 ng/mL (< 6.7)
[2017-04-02 10:12] LABS: TROPONIN I < 0.30 ng/mL (<=0.30)
[2017-04-02 10:30] VITALS: BP 171/80
[2017-04-02 12:15] VITALS: BP 169/74
[2017-04-02] MEDS ORDERED: Midodrine 10mg tab ORAL SCH (13:00)
[2017-04-02 15:44] VITALS: BP 180/89
[2017-04-02 21:00] VITALS: BP 133/69
[2017-04-02] MEDS: Heparin 5000 units/ml inj SUBQ SCH (21:00)
[2017-04-02] MEDS: Tamsulosin 0.4mg cap ORAL SCH (22:02)
[2017-04-03 04:00] VITALS: BP 148/72
[2017-04-03 07:08] LABS: TROPONIN I < 0.30 ng/mL (<=0.30)
[2017-04-03] MEDS: Amiodarone 200mg tab ORAL SCH (08:11)
[2017-04-03] MEDS: Heparin 5000 units/ml inj SUBQ SCH ×2 (08:12→20:48)
[2017-04-03 10:01] VITALS: BP 122/91
[2017-04-03 12:10] VITALS: BP 108/58
[2017-04-03 16:24] VITALS: BP 157/88
--- NOTE | 2017-04-03 17:15 | History and Physical Report ---
DATE OF ADMISSION: 04/02/2017 CHIEF COMPLAINT: Syncope. HISTORY OF PRESENT ILLNESS: The patient is an 82-year-old male. He has a history of orthostatic hypotension, conduction system disease, status post pacemaker, paroxysmal atrial fibrillation, hypertension, and dementia. He was admitted with complaints of a syncopal episode. The patient has had multiple episodes in the past. They are usually related to orthostatic hypotension. The patient currently is confused, but is at his baseline. He denies any headaches or any visual changes. No chest pain. No shortness of breath. Denies any heart palpitations. It is unclear whether or not he has been compliant with the medication. He denies any diarrhea, nausea, or vomiting. On evaluation in the emergency room, initial workup was unremarkable. He was noted to be markedly hypertensive with the blood pressure as high as 190. He is now admitted for further evaluation and care. PAST MEDICAL HISTORY: As above. PAST SURGICAL HISTORY: Includes a pacemaker. CURRENT MEDICATIONS: Reconciled and reviewed. ALLERGIES: None. FAMILY HISTORY: None. SOCIAL HISTORY: There is no known history of tobacco, ethanol, or drugs. PHYSICAL EXAMINATION: VITAL SIGNS: Temperature 98 degrees, blood pressure 148/72, pulse of 60, and respirations 20. GENERAL: The patient is a well-developed male, in no apparent distress. HEART: Regular rate and rhythm. LUNGS: Lungs are clear. ABDOMEN: Soft, nontender, and nondistended. EXTREMITIES: Without clubbing, cyanosis, or edema. LABORATORY DATA: White count 6, hemoglobin 13, hematocrit 40, and platelets 142,000. CMP was unremarkable. Troponin was negative. Tox screen is negative. ASSESSMENT: This is a pleasant male with a history of conduction system disease, paroxysmal atrial fibrillation, orthostatic hypotension, and dementia admitted with complaints of near syncope suspect secondary to orthostatic hypotension. PLAN: Check orthostatics. IV hydration if orthostatics are positive. Continue outpatient cardiac regimen. PT and OT evaluations will be obtained. Zen Dunn M.D. DR: JULIETTE JOB#: [id number] CC:
[2017-04-03 20:00] VITALS: BP 146/76
[2017-04-03] MEDS: Tamsulosin 0.4mg cap ORAL SCH (20:46)
[2017-04-04] VITALS: BP 144/81
[2017-04-04 02:44] LABS: APPEARANCE,URINE CLEAR; KETONES,URINE NEGATIVE (NEGATIVE); LEUKOCYTE ESTERASE ,URINE NEGATIVE (NEGATIVE); NITRITE,URINE POSITIVE (NEGATIVE); PH,URINE 7 (4.5-8.0); PROTEIN,URINE NEGATIVE (NEGATIVE); UROBILINOGEN,URINE 1 MG/DL (0.0-1.0)
[2017-04-04 02:52] LABS: RBC,URINE 0-2 /HPF (0 - 0); WBC,URINE 0 /HPF (0 - 0)
[2017-04-04 04:00] VITALS: BP 148/77
--- NOTE | 2017-04-04 06:36 | Wound Care Consultation ---
Wound Assessment Wound Assessment #1: Wound Number: #1 Wound Present on Admission: Yes New Wound: No Status Change of Wound: No Wound Location Body Site Modif: right Wound Location Body Site: trochanter Wound Type: pressure ulcer Alistair Test: Does not Alistair Pressure Ulcer Stage: III Wound Thickness: Full Thickness Wound Length: 4.5 Wound Width: 3.5 Wound Depth: 0.3 Percent of Wound [place]/Red: 100 Wound Drainage Description: Serosanguineous Wound Drainage Amount: Moderate Wound Drainage Odor: None/Absent Tissue Surrounding Wound: Erythemic Wound General Appearance: Reddened, Draining Wound Assessment #2: Wound Number: #2 Wound Present on Admission: Yes New Wound: No Status Change of Wound: No Wound Location Body Site Modif: mid Wound Location Body Site: sacral Wound Type: pressure ulcer Alistair Test: Does not Alistair Pressure Ulcer Stage: deep tissue injury - sacral tenderness per patient. Wound Thickness: Full Thickness Wound Length: 4.0 Wound Width: 4.0 Wound Depth: utd Percent of Wound Black/Brown: 50 - discolored brown color to site. Percent of Wound Purple/Maroon: 50 Wound Drainage Amount: None Wound Drainage Odor: None/Absent Tissue Surrounding Wound: Intact Wound Comment #1 Right trochanter stage III pressure ulcer. #2 Sacral deep tissue injury. Recommendation. -Local wound care per protocol. -Apply low air loss SPR mattress. -Turn and reposition. -Keep clean and dry. -Optimize nutrition. -Offload heels and feet for skin management preventative measures. -Avoid shear and friction. -Assess and notify MD for any further changes of condition to skin noted. MELL JONES Apr 04, 2017 06:36
--- NOTE | 2017-04-04 08:12 | General Progress Note ---
Assessment/Plan Problem List: (1) Orthostatic hypotension ICD Codes: I95.1 - Orthostatic hypotension SNOMED: 27423202 (2) Syncope ICD Codes: R55 - Syncope and collapse SNOMED: 893073376 (3) Pacemaker ICD Codes: Z95.0 - Pacemaker SNOMED: 525413092 (4) Altered level of consciousness ICD Codes: R40.4 - Transient alteration of awareness SNOMED: 9034975 Status: stable, progressing Assessment/Plan check orthostatics if negative consider dc home will d/w son ?snf Subjective ROS Limited/Unobtainable: No Constitutional: Reports: malaise, weakness HEENT: Reports: no symptoms Cardiovascular: Reports: no symptoms Respiratory: Reports: no symptoms Gastrointestinal/Abdominal: Reports: no symptoms Genitourinary: Reports: no symptoms Neurologic/Psychiatric: Reports: pre-existing deficit Endocrine: Reports: no symptoms Hematologic/Lymphatic: Reports: no symptoms Allergies: Coded Allergies: No Known Allergies (Unverified , 10/08/14) All Systems: reviewed and negative except above Subjective +orthostatics yesterday. none done today yet. pt denies dizziness. PT noted- stable for home with 24 hr supervision or snf. Objective Last 24 Hour Vital Signs Date Time Temp Pulse Resp B/P Pulse Ox O2 Delivery O2 Flow Rate FiO2 04/04/17 04:00 97.2 61 16 148/77 98 Room Air 04/04/17 00:00 97.6 61 16 144/81 98 Room Air 04/03/17 20:46 61 146/76 04/03/17 20:00 97.7 61 18 146/76 99 Room Air 04/03/17 18:44 60 60 66 04/03/17 16:24 97.9 60 19 157/88 100 Room Air 04/03/17 12:10 96.9 60 19 108/58 99 Room Air 04/03/17 10:01 97.0 60 19 122/91 100 Room Air 04/03/17 09:00 60 61 66 04/03/17 08:11 60 122/91 Intake and Output 04/03/17 04/04/17 19:00 07:00 Intake Total 680 ml 240 ml Output Total 220 ml 300 ml Balance 460 ml -60 ml Intake Oral 680 ml 240 ml Output Urine Total 220 ml 300 ml # Voids 1 1 Laboratory Tests 04/04/17 02:00: Urine Color Yellow, Urine Appearance Clear, Urine pH 7, Urine Specific [place] 1.005, Urine Protein Negative, Urine Glucose (UA) Negative, Urine Ketones Negative, Urine Occult Blood Negative, Urine Nitrite PositiveH, Urine Bilirubin Negative, Urine Urobilinogen 1H, Urine Leukocyte Esterase Negative, Urine RBC 0- 2H, Urine WBC 0, Urine Squamous Epithelial Cells None, Urine Bacteria None, Urine Opiates Screen Negative, Urine Barbiturates Screen Negative, Phencyclidine (PCP) Screen Negative, Urine Amphetamines Screen Negative, Urine Benzodiazepines Screen Negative, Urine Cocaine Screen Negative, Urine Marijuana (THC) Screen Negative Height (Feet): 5 Height (Inches): 11.00 Weight (Pounds): 165 General Appearance: WD/WN, alert, confused Neck: supple Cardiovascular: normal rate, regular rhythm Respiratory/Chest: chest wall non-tender, lungs clear, normal breath sounds, no respiratory distress, no accessory muscle use Abdomen: normal bowel sounds, non tender, soft, no organomegaly, no mass Edema: no edema noted Arm (L), no edema noted Arm (R), no edema noted Leg (L), no edema noted Leg (R), no edema noted Pedal (L), no edema noted Pedal (R), no edema noted Generalized Neurologic: no motor/sensory deficits, alert, responsive Skin: normal pigmentation MEENA DOTSON Apr 04, 2017 08:12
[2017-04-04 08:30] VITALS: BP 129/75
[2017-04-04] MEDS: Amiodarone 200mg tab ORAL SCH (08:30)
[2017-04-04] MEDS: Heparin 5000 units/ml inj SUBQ SCH ×2 (08:37→20:52)
--- NOTE | 2017-04-04 10:33 | Physician Query ---
PLEASE COMPLETE DOCUMENT BEFORE SIGNING Dear __Dr. Dunn Date: _04/04/2017 Dispatcher Refinery/CDS Name: _Mona Leon MD Dispatcher Refinery/CDS Phone No.: _[phone]. [phone] Exercise your independent professional judgment when responding to the query. Questions asked do not imply a particular answer is desired or expected. We greatly appreciate your clarification on this issue. CLINICAL DOCUMENTATION STATES: "Right trochanter stage III pressure ulcer" as per Glory Webber RN's wound consultation note from 04/04/2017 Please respond to the following question: Is there a diagnosis specific to these symptoms or values? If so please state below. PHYSICIAN RESPONSE: Condition Present on Admission: [x] Yes [] No []Clinically Undeterminable Please also document in your Progress Notes and/or Discharge Summary and indicate if the condition was present on admission. Zen Dunn MD [facility]
--- NOTE | 2017-04-04 10:44 | Physician Query ---
PLEASE COMPLETE DOCUMENT BEFORE SIGNING Dear __Dr. Dunn Date: 04/04/2017 Customer Sales Representative/CDS Name: _Mona Leon MD Customer Sales Representative/CDS Phone No.: _[phone]. [phone] Exercise your independent professional judgment when responding to the query. Questions asked do not imply a particular answer is desired or expected. We greatly appreciate your clarification on this issue. CLINICAL DOCUMENTATION STATES: "ARF (acute renal failure)" as per ED Provider note CLINICAL FINDINGS: Creatinine = 1.3 on admission Please respond to the following question: Is there a diagnosis specific to these symptoms or values? If so please state below. PHYSICIAN RESPONSE: Condition Present on Admission: [x] Yes [] No []Clinically Undeterminable Please also document in your Progress Notes and/or Discharge Summary and indicate if the condition was present on admission. Zen [facility] MD [facility]
[2017-04-04 11:53] VITALS: BP 122/79
--- NOTE | 2017-04-04 14:56 | Physician Query ---
PLEASE COMPLETE DOCUMENT BEFORE SIGNING Dear __Dr. Dunn Date: _04/04/2017 Warm In/CDS Name: _Mona Leon MD Warm In/CDS Phone No.: _[phone]. [phone] Exercise your independent professional judgment when responding to the query. Questions asked do not imply a particular answer is desired or expected. We greatly appreciate your clarification on this issue. CLINICAL DOCUMENTATION STATES: "Altered level of consciousness" documented in both Dr. Dunn's progress note from 04/04/2017 & in ED Provider note "The patient currently is confused, but is at his baseline" as per Dr. Dunn's history & physical "Patient does not remember why he is here" as per ED Provider note Please indicate the nature and chronicity of the condition below: [x] Metabolic Encephalopathy [] Toxic Encephalopathy [] Toxic - Metabolic Encephalopathy [] Progressive Encephalopathy [] Encephalopathy, Other [] Other: [] Not Applicable Severity [] Acute [] Chronic [x] Acute on Chronic [] Unable to determine Condition Present on Admission: [] Yes [] No []Clinically Undeterminable Please also document in your Progress Notes and/or Discharge Summary and indicate if the condition was present on admission. Zen Dunn MD Date & Time [facility]
[2017-04-04 16:13] VITALS: BP 178/91
[2017-04-04 20:00] VITALS: BP 145/85
[2017-04-04] MEDS: Tamsulosin 0.4mg cap ORAL SCH (20:52)
[2017-04-05] VITALS: BP 135/59
[2017-04-05 04:00] VITALS: BP 132/67
[2017-04-05 08:35] VITALS: BP 141/71
[2017-04-05] MEDS: Amiodarone 200mg tab ORAL SCH (08:58)
[2017-04-05] MEDS: Heparin 5000 units/ml inj SUBQ SCH (09:00)
--- NOTE | 2017-04-05 10:45 | Discharge Summary ---
DATE OF ADMISSION: 04/02/2017 DATE OF DISCHARGE: 04/05/2017 ADMISSION DIAGNOSES: 1. Syncope. 2. Orthostatic hypotension. 3. Toxic metabolic encephalopathy. 4. Trochanteric pressure ulcer. 5. History of conduction system disease, status post pacemaker. DISCHARGE DIAGNOSES: 1. Syncope. 2. Orthostatic hypotension. 3. Toxic metabolic encephalopathy. 4. Trochanteric pressure ulcer. 5. History of conduction system disease, status post pacemaker. HOSPITAL COURSE: The patient is a pleasant male, admitted with complaints of a near syncopal episode. He was orthostatic he had run out of his midodrine. He was hydrated. He initially did have positive orthostatics. Upon discharge, the orthostatic vital signs were normal. The patient will be discharged home with home health. DISCHARGE MEDICATIONS: Please see discharge medication list for discharge medications. DIET: Cardiac diet. ACTIVITY: Ad-Aury. FOLLOWUP: The patient will follow up in one to two days at the shelter facility. Zen Dunn M.D. DR: BASHIR JOB#: [id number] CC:
[2017-04-05 12:19] VITALS: BP 118/81
[2017-04-05] MEDS ORDERED: NS 550ML IV ONE (13:19)
--- NOTE | 2017-04-05 15:00 | Consultation ---
DATE OF CONSULTATION: HISTORY OF PRESENT ILLNESS: This is an 82-year-old male with history of hypertension, pacemaker, atrial fibrillation, and dementia. He has been admitted to the hospital due to syncope. The patient appears to be confused, not engaged during evaluation. His impairment . Psychiatric consult the patient presented with agitation. During evaluation, the patient was calm and was unable to provide any history. PAST PSYCHIATRIC HISTORY: The patient has a history of dementia, has been treated with anxiolytics. PAST MEDICAL HISTORY: Significant for hypotension, conduction system disease status post pacemaker, paroxysmal atrial fibrillation, and hypertension. ALLERGIES: No known drug allergies. SUBSTANCE ABUSE HISTORY: No history of illicit drug use or alcohol. MENTAL STATUS EXAMINATION: The patient is confused and disoriented. Mood is neutral during the evaluation. Affect is constricted. Congruent mood. Thought process is concrete. Thought content, no suicidal, or homicidal ideation. ASSESSMENT: 1. Dementia. 2. Altered mental status. PLANS: 1. The patient would benefit from low-dose of antipsychotics. 2. We will continue to reassess if the patient continues to have agitation. We will have the medication. He had only one episode of agitation. Danny Dominguez M.D. DR: OLEG JOB#: [id number] CC:
== END 2017-04-05 13:20 | disposition home health service (06) | DRG 312 ==
LOC: EDBD 08:23 → EMR 09:01 → 4E 09:15 → EDBEDREQ 09:59
DX: I95.1 Orthostatic hypotension (principal); N17.9 Acute kidney failure, unspecified; G92 Toxic encephalopathy; L89.893 Pressure ulcer of other site, stage 3; L89.213 Pressure ulcer of right hip, stage 3; G30.9 Alzheimer's disease, unspecified; F02.80 Dementia in other diseases classified elsewhere, unspecified severity, without behavioral disturbance, psychotic disturbance, mood disturbance, and anxiety; I48.0 Paroxysmal atrial fibrillation; Z95.0 Presence of cardiac pacemaker
CPT/HCPCS: 36415; 70450; 80053; 80300; 80329; 81003; 82550; 82553; 84484; 85025

== ENCOUNTER 2017-10-04 11:57 | Inpatient (IN) | payer MEDICARE ==
[~2017-10-04] VITALS: Ht 177.8 cm; Wt 72.6 kg
[~2017-10-04 11:57] MED LIST changes: +AMIODARONE HCL400 M1 ORAL; +ATORVASTATIN CA20 MG ORAL; +COUMADIN6 MG ORAL; +DONEPEZIL HCL10 MG ORAL; +FLOMAX0.4 MG ORAL; +METOPROLOL SUCC25 MG ORAL; +METOPROLOL TART50 MG ORAL; +METOPROLOL5 MG/5 M1 IV; +PROSCAR5 MG ORAL; +SIMVASTATIN5 MG ORAL; +WARFARIN SODIUM5 MG ORAL; +ZOCOR20 M1 ORAL
[2017-10-04] MEDS ORDERED: NS 1000ml 2,200 ML IVLG ONE (12:00)
[2017-10-04 13:32] VITALS: BP 119/72
--- NOTE | 2017-10-04 13:32 | Emergency Room Report ---
History of Present Illness General Chief Complaint: General Complaint Source: Patient, EMS Present Illness HPI This patient is brought in by EMS. The patient has dementia and is unable to give a history. Apparently he has had generalized weakness. He has had a poor appetite for the past few days. He also had complained of body aches. This is all per report from EMS as the patient states "I feel just fine." There are no other complaints. There is no other history available. Allergies: Coded Allergies: No Known Allergies (Unverified , 10/04/17) Patient History Past Medical History: see triage record, HTN Social History: Denies: smoking, alcohol use, drug use Reviewed Nursing Documentation: PMH: Agreed, PSxH: Agreed Nursing Documentation-PMH Past Medical History: No History, Except For Hx Hypertension: Yes Review of Systems All Other Systems: negative except mentioned in HPI Physical Exam Vital Signs Date Time Temp Pulse Resp B/P (MAP) Pulse Ox O2 Delivery O2 Flow Rate FiO2 10/04/17 11:51 97.9 87 20 138/81 99 Room Air Sp02 EP Interpretation: reviewed, normal General Appearance: no apparent distress, alert, GCS 15, non-toxic Head: normocephalic, atraumatic Eyes: bilateral eye normal inspection, bilateral eye PERRL ENT: hearing grossly normal, normal pharynx, no angioedema, normal voice Neck: full range of motion, supple/symm/no masses Respiratory: chest non-tender, lungs clear, normal breath sounds, no respiratory distress, no retraction, no accessory muscle use, speaking full sentences Cardiovascular #1: regular rate, rhythm, no edema Gastrointestinal: normal bowel sounds, non tender, soft, non-distended, no guarding, no rebound Rectal: deferred Musculoskeletal: back normal, normal range of motion, non-tender Neurologic: alert, responsive, motor strength/tone normal, speech normal, other - No focal findings Psychiatric: judgement/insight normal, memory normal, mood/affect normal, no suicidal/homicidal ideation Skin: normal color, no rash, warm/dry, well hydrated Medical Decision Making Diagnostic Impression: Primary Impression: Failure to thrive in adult Additional Impression: Abnormal EKG ER Course Is elderly patient has had failure to thrive and deterioration over the past 3 days. He is not eating. Overall, evaluation was benign with a normal laboratory workup to include CBC, CMP and urinalysis. The patient did have an abnormal EKG with some ST segment changes that I was unable to identify if they are acute and not there is no previous EKG available to compare. Given the patient's deterioration an elderly age, and that the family is unable to be contacted and the patient cannot be discharged home without a care provider given his age and severe dementia, the patient will be admitted for further evaluation and treatment. Laboratory Tests Test 10/04/17 12:45 White Blood Count 8.0 K/UL (4.8-10.8) Red Blood Count 4.54 M/UL (4.70-6.10) L Hemoglobin 13.7 G/DL (14.2-18.0) L Hematocrit 43.7 % (42.0-52.0) Mean Corpuscular Volume 96 FL (80-99) Mean Corpuscular Hemoglobin 30.3 PG (27.0-31.0) Mean Corpuscular Hemoglobin Concent 31.4 G/DL (32.0-36.0) L Red Cell Distribution Width 12.6 % (11.6-14.8) Platelet Count 172 K/UL (150-450) Mean Platelet Volume 8.0 FL (6.5-10.1) Neutrophils (%) (Auto) 76.1 % (45.0-75.0) H Lymphocytes (%) (Auto) 10.2 % (20.0-45.0) L Monocytes (%) (Auto) 10.9 % (1.0-10.0) H Eosinophils (%) (Auto) 1.8 % (0.0-3.0) Basophils (%) (Auto) 1.0 % (0.0-2.0) Urine Color Pale yellow Urine Appearance Clear Urine pH 5 (4.5-8.0) Urine Specific [place] 1.020 (1.005-1.035) Urine Protein 1+ (NEGATIVE) H Urine Glucose (UA) Negative (NEGATIVE) Urine Ketones 1+ (NEGATIVE) H Urine Occult Blood 3+ (NEGATIVE) H Urine Nitrite Negative (NEGATIVE) Urine Bilirubin Negative (NEGATIVE) Urine Urobilinogen Normal MG/DL (0.0-1.0) Urine Leukocyte Esterase Negative (NEGATIVE) Urine RBC 2-4 /HPF (0 - 0) H Urine WBC 2-4 /HPF (0 - 0) Urine Squamous Epithelial Cells Occasional /LPF Urine Bacteria Occasional /HPF (NONE) Sodium Level 138 MMOL/L (136-145) Potassium Level 4.6 MMOL/L (3.5-5.1) Chloride Level 101 MMOL/L (98-107) Carbon Dioxide Level 25 MMOL/L (21-32) Anion Gap 12 mmol/L (5-15) Blood Urea Nitrogen 23 mg/dL (7-18) H Creatinine 1.0 MG/DL (0.55-1.30) Estimate Glomerular Filtration Rate mL/min (>60) Glucose Level 96 MG/DL (74-106) Lactic Acid Level 1.20 mmol/L (0.66-2.22) Calcium Level 9.3 MG/DL (8.5-10.1) Phosphorus Level 3.4 MG/DL (2.5-4.9) Magnesium Level 2.1 MG/DL (1.8-2.4) Total Bilirubin 1.0 MG/DL (0.2-1.0) Aspartate Amino Transferase (AST) 51 U/L (15-37) H Alanine Aminotransferase (ALT) 44 U/L (12-78) Alkaline Phosphatase 131 U/L (46-116) H Total Creatine Kinase 490 U/L (26-308) H Creatine Kinase MB 6.7 NG/ML (0.0-3.6) H Creatine Kinase MB Relative Index 1.3 Troponin I 0.023 ng/mL (0.000-0.056) Total Protein 6.9 G/DL (6.4-8.2) Albumin 3.0 G/DL (3.4-5.0) L Globulin 3.9 g/dL Albumin/Globulin Ratio 0.8 (1.0-2.7) L EKG Diagnostic Results Rate: normal Rhythm: NSR ST Segments: other Other Impression Intrafascicular block. Nonspecific ST segment findings in the V. leads. Specifically more pronounced in V4, V5, V6. Rhythm Strip Diag. Results EP Interpretation: yes Rate: 90's Rhythm: NSR, no PVC's, no ectopy Chest X-Ray Diagnostic Results Chest X-Ray Diagnostic Results : Chest X-Ray Ordered: Yes # of Views/Limited/Complete: 1 View Indication: Other EP Interpretation: Yes Interpretation: no consolidation, no effusion, no pneumothorax, no acute cardiopulmonary disease Impression: No acute disease Electronically Signed by: Eddie Last Vital Signs Date Time Temp Pulse Resp B/P (MAP) Pulse Ox O2 Delivery O2 Flow Rate FiO2 10/04/17 11:51 97.9 87 20 138/81 99 Room Air Disposition: ADMITTED INPATIENT Condition: Serious Referrals: NOT CHOSEN IPA/,REFERRING (PCP) KOLTON NATHAN D.O. Oct 04, 2017 13:32
[2017-10-04 13:34] LABS: EOSINOPHILS % (AUTO) 1.8 % (0.0-3.0); LYMPHOCYTES % (AUTO) 10.2 % (20.0-45.0); MEAN CORPUSCULAR HEMOGLOBIN 30.3 PG (27.0-31.0); MEAN CORPUSCULAR HGB CONC 31.4 G/DL (32.0-36.0); MEAN CORPUSCULAR VOLUME 96 FL (80-99); MONOCYTES % (AUTO) 10.9 % (1.0-10.0); NEUTROPHILS % (AUTO) 76.1 % (45.0-75.0); PLATELET COUNT 172 K/UL (150-450); RED BLOOD COUNT 4.54 M/UL (4.70-6.10); RED CELL DISTRIBUTION WIDTH 12.6 % (11.6-14.8)
[2017-10-04 13:40] LABS: APPEARANCE,URINE CLEAR; KETONES,URINE 1+ (NEGATIVE); LEUKOCYTE ESTERASE ,URINE NEGATIVE (NEGATIVE); NITRITE,URINE NEGATIVE (NEGATIVE); PH,URINE 5 (4.5-8.0); PROTEIN,URINE 1+ (NEGATIVE); UROBILINOGEN,URINE NORMAL MG/DL (0.0-1.0)
[2017-10-04 13:55] LABS: BACTERIA,URINE OCCASIONAL /HPF; SQUAMOUS EPITHELIAL CELL,UR OCCASIONAL /LPF (NONE/OCC)
[2017-10-04 14:26] LABS: ANION GAP 12 mmol/L (5-15); CALCIUM 9.3 MG/DL (8.5-10.1); CARBON DIOXIDE 25 MMOL/L (21-32); CHLORIDE 101 MMOL/L (98-107); POTASSIUM 4.6 MMOL/L (3.5-5.1); SODIUM 138 MMOL/L (136-145)
[2017-10-04 14:39] LABS: ALANINE AMINOTRANSFERASE 44 U/L (12-78); ALBUMIN/GLOBULIN RATIO 0.8 (1.0-2.7); ASPARTATE AMINO TRANSFERASE 51 U/L (15-37); CKMB 6.7 NG/ML (0.0-3.6); MAGNESIUM 2.1 MG/DL (1.8-2.4); PHOSPHORUS 3.4 MG/DL (2.5-4.9); TOTAL PROTEIN 6.9 G/DL (6.4-8.2)
--- NOTE | 2017-10-04 15:23 | Diagnostic Imaging Report ---
Indication: Chest pain Technique: One view of the chest Comparison: none Findings: There is some atelectasis at the left lateral lung base. Lungs and pleural spaces are otherwise clear. There is a left chest AICD. The heart size is normal. The aorta is tortuous and calcified Impression: Left lateral basilar atelectasis No acute process otherwise. Incidental findings as noted
[2017-10-04] MEDS ORDERED: METOPROLOL TART25 MG ORAL (15:43)
[2017-10-04 16:02] VITALS: BP 147/77
[2017-10-04] MEDS: Heparin 5000 units/ml inj SUBQ SCH (18:19)
[2017-10-04 20:40] VITALS: BP 136/94
[2017-10-04] MEDS: Metoprolol 25mg tab ORAL SCH (21:51)
[2017-10-04] MEDS: Midodrine 10mg tab ORAL SCH (21:51)
--- NOTE | 2017-10-04 23:00 | History and Physical Report ---
DATE OF ADMISSION: 10/04/2017 CHIEF COMPLAINT: Generalized weakness. HISTORY OF PRESENT ILLNESS: The patient is a pleasant 82-year-old male. He has a history of dementia, hypertension, orthostatic hypertension, and BPH. He was brought in by family members with complaints of failure to thrive and generalized weakness. The patient is a poor historian. He is unable to provide any history. Attempts to contact with the family are unsuccessful. The patient according to the paramedics has been increasingly weak, dizzy, and unsteady. There are no reports of any fevers or chills. No chest pain. No shortness of breath. No nausea. No vomiting. No diarrhea. On evaluation in the emergency room, the patient's initial workup was unremarkable. He was noted to have elevated CK level. His cardiac enzymes were negative. UA was clear. In light of the patient's worsening weakness, he is now admitted for further evaluation and care. PAST MEDICAL HISTORY: As above. PAST CARDIAC HISTORY: History of pacemaker. PAST SURGICAL HISTORY: None. CURRENT MEDICATIONS: Reconciled and reviewed. ALLERGIES: None. SOCIAL HISTORY: Negative for tobacco, ethanol, or drugs. FAMILY HISTORY: None. REVIEW OF SYSTEMS: Unobtainable as the patient is confused. PHYSICAL EXAMINATION: VITAL SIGNS: Temperature 97.9, pulse 92, respirations 16, and blood pressure 147/77. GENERAL: The patient is a well-developed male, in no apparent distress. He is awake and alert. HEENT: His pupils are equal, round, and reactive to light. Sclerae anicteric. Oropharynx clear. NECK: Supple. HEART: Regular rate and rhythm. LUNGS: Clear. ABDOMEN: Soft, nontender, and nondistended. EXTREMITIES: Without clubbing, cyanosis, or edema. LABORATORY DATA: Labs show white count of 8, hemoglobin 13, hematocrit 43, and platelet count of 172,000. Sodium 138, potassium 4.6, chloride 101, bicarbonate 25, BUN 23, and creatinine is 1. CK level is 490. Troponin 0.023. Lactic acid was 1.2. ASSESSMENT: This is a pleasant male, who complains of generalized weakness, etiology of which is unclear. The patient may have some myopathy from statins. He also clinically appears to be slightly dehydrated. He has history of hypertension and orthostasis. PLAN: Cardiology consultation. Gentle hydration. Repeat CK level. Discontinue statin. Continue outpatient cardiac regimen. PT/OT evaluations will be obtained. Zen Dunn M.D. DR: Fuentes JOB#: [id number] CC:
[2017-10-05] VITALS: BP 132/92
[2017-10-05 04:00] VITALS: BP 129/75
[2017-10-05 08:30] VITALS: BP 140/57
[2017-10-05] MEDS: Tamsulosin 0.4mg cap ORAL SCH (09:24)
[2017-10-05] MEDS: Amiodarone 200mg tab ORAL SCH (09:24)
[2017-10-05] MEDS: Metoprolol 25mg tab ORAL SCH ×2 (09:24→20:31)
[2017-10-05] MEDS: Midodrine 10mg tab ORAL SCH ×3 (09:24→17:34)
[2017-10-05] MEDS: Heparin 5000 units/ml inj SUBQ SCH ×2 (09:25→20:35)
--- NOTE | 2017-10-05 10:32 | General Progress Note ---
Assessment/Plan Problem List: (1) Rhabdomyolysis due to statin therapy ICD Codes: M62.82 - Rhabdomyolysis SNOMED: 324600590, 518119325 (2) Orthostatic hypotension ICD Codes: I95.1 - Orthostatic hypotension SNOMED: 30128604 (3) Failure to thrive in adult ICD Codes: R62.7 - Adult failure to thrive SNOMED: 060343772 (4) Pacemaker ICD Codes: Z95.0 - Pacemaker SNOMED: 429902449 Status: stable, progressing Assessment/Plan holding statin ivf cards eval check pacer pt/ot consider short term ecf Subjective ROS Limited/Unobtainable: No Constitutional: Reports: malaise, weakness HEENT: Reports: no symptoms Cardiovascular: Reports: no symptoms Respiratory: Reports: no symptoms Gastrointestinal/Abdominal: Reports: no symptoms Genitourinary: Reports: no symptoms Neurologic/Psychiatric: Reports: pre-existing deficit Endocrine: Reports: no symptoms Hematologic/Lymphatic: Reports: no symptoms Allergies: Coded Allergies: No Known Allergies (Unverified , 10/08/14) All Systems: reviewed and negative except above Subjective no complaints. confused at baseline. feels weak. CK trending down Objective Last 24 Hour Vital Signs Date Time Temp Pulse Resp B/P (MAP) Pulse Ox O2 Delivery O2 Flow Rate FiO2 10/05/17 09:24 71 140/57 10/05/17 09:24 71 140/57 10/05/17 08:30 98.4 71 20 140/57 95 10/05/17 04:00 97.6 87 18 129/75 97 Room Air 10/05/17 00:00 97.9 76 20 132/92 97 Room Air 10/04/17 21:51 72 136/94 10/04/17 21:51 72 136/94 10/04/17 20:40 97.7 72 20 136/94 Room Air 10/04/17 16:06 97.9 92 16 147/77 99 Nasal Cannula 2.0 10/04/17 16:02 97.9 92 16 147/77 99 Nasal Cannula 2.0 10/04/17 13:32 97.9 87 16 119/72 99 Nasal Cannula 2.0 10/04/17 11:51 97.9 87 20 138/81 99 Room Air Intake and Output 10/04/17 10/05/17 19:00 07:00 Intake Total 50 ml 600 ml Balance 50 ml 600 ml IV Total 50 ml 600 ml # Voids 3 1 Laboratory Tests 10/04/17 12:45: White Blood Count 8.0, Red Blood Count 4.54L, Hemoglobin 13.7L, Hematocrit 43.7 , Mean Corpuscular Volume 96, Mean Corpuscular Hemoglobin 30.3, Mean Corpuscular Hemoglobin Concent 31.4L, Red Cell Distribution Width 12.6, Platelet Count 172, Mean Platelet Volume 8.0, Neutrophils (%) (Auto) 76.1H, Lymphocytes (%) (Auto) 10.2L, Monocytes (%) (Auto) 10.9H, Eosinophils (%) (Auto ) 1.8, Basophils (%) (Auto) 1.0, Urine Color Pale yellow, Urine Appearance Clear , Urine pH 5, Urine Specific [place] 1.020, Urine Protein 1+H, Urine Glucose (UA ) Negative, Urine Ketones 1+H, Urine Occult Blood 3+H, Urine Nitrite Negative, Urine Bilirubin Negative, Urine Urobilinogen Normal, Urine Leukocyte Esterase Negative, Urine RBC 2-4H, Urine WBC 2-4, Urine Squamous Epithelial Cells Occasional, Urine Bacteria Occasional, Sodium Level 138, Potassium Level 4.6, Chloride Level 101, Carbon Dioxide Level 25, Anion Gap 12, Blood Urea Nitrogen 23H, Creatinine 1.0, Estimat Glomerular Filtration Rate , Glucose Level 96, Lactic Acid Level 1.20, Calcium Level 9.3, Phosphorus Level 3.4, Magnesium Level 2.1, Total Bilirubin 1.0, Aspartate Amino Transf (AST/SGOT) 51H, Alanine Aminotransferase (ALT/SGPT) 44, Alkaline Phosphatase 131H, Total Creatine Kinase 490H, Creatine Kinase MB 6.7H, Creatine Kinase MB Relative Index 1.3, Troponin I 0.023, Total Protein 6.9, Albumin 3.0L, Globulin 3.9, Albumin/ Globulin Ratio 0.8L 10/05/17 05:45: Total Creatine Kinase 348H Height (Feet): 5 Height (Inches): 10.00 Weight (Pounds): 160 General Appearance: WD/WN, alert Neck: supple Cardiovascular: normal rate, regular rhythm Respiratory/Chest: chest wall non-tender, lungs clear, normal breath sounds Abdomen: normal bowel sounds, non tender, soft, no organomegaly Edema: no edema noted Arm (L), no edema noted Arm (R), no edema noted Leg (L), no edema noted Leg (R), no edema noted Pedal (L), no edema noted Pedal (R), no edema noted Generalized Neurologic: alert, responsive MEENA DOTSON Oct 05, 2017 10:32
[2017-10-05 11:25] VITALS: BP 155/80
[2017-10-05 15:55] VITALS: BP 132/66
--- NOTE | 2017-10-05 16:57 | Wound Care Consultation ---
Wound Assessment Wound Assessment #1: Wound Number: 1 Wound Present on Admission: Yes New Wound: No Status Change of Wound: No Wound Location Body Site Modif: left Wound Location Body Site: shoulder Wound Type: traumatic injury Alistair Test: Does not Alistair Wound Thickness: Full Thickness Wound Length: 3.5 Wound Width: 3.0 Wound Depth: 0.2 Percent of Wound Grants/Red: 80 Percent of Wound Bed Yellow/Wh: 20 Wound Drainage Amount: None Wound Drainage Odor: None/Absent Tissue Surrounding Wound: Erythemic Wound General Appearance: Reddened Wound Assessment #2: Wound Number: 2 Wound Present on Admission: Yes New Wound: No Status Change of Wound: No Wound Location Body Site Modif: left Wound Location Body Site: elbow Wound Type: traumatic injury Alistair Test: Does not Alistair Wound Thickness: Full Thickness Wound Length: 3.0 Wound Width: 2.5 Wound Depth: 0.1 Percent of Wound Grants/Red: 50 Percent of Wound Bed Yellow/Wh: 50 Wound Drainage Amount: None Wound Drainage Odor: None/Absent Tissue Surrounding Wound: Erythemic Wound General Appearance: Reddened Wound Assessment #3: Wound Number: 3 Wound Present on Admission: Yes New Wound: No Status Change of Wound: No Wound Location Body Site Modif: right, lower, lateral Wound Location Body Site: leg Wound Type: traumatic injury Alistair Test: Does not Alistair Traumatic Injury Wounds: Skin Tear Wound Thickness: Partial Thickness Wound Length: 0.8 Wound Width: 0.5 Wound Depth: 0.1 Percent of Wound Grants/Red: 100 Wound Drainage Amount: None Wound Drainage Odor: None/Absent Tissue Surrounding Wound: Erythemic Wound General Appearance: Reddened Wound Comment #1 Traumatic injury with full and partial thickness loss on left elbow, left shoulder and right lower lateral leg Recommendations -Local wound care per protocol -Keep clean and dry -Optimize nutrition -Heel protector on both heels -Offload both heels -Assess and f/u accordingly for any changes SON HOOKER RN Oct 05, 2017 16:57
[2017-10-05 20:00] VITALS: BP 143/88
[2017-10-06] VITALS: BP 133/67
[2017-10-06 08:03] VITALS: BP 135/73
[2017-10-06] MEDS: Tamsulosin 0.4mg cap ORAL SCH (09:04)
[2017-10-06] MEDS: Amiodarone 200mg tab ORAL SCH (09:04)
[2017-10-06] MEDS: Metoprolol 25mg tab ORAL SCH ×2 (09:05→21:32)
[2017-10-06] MEDS: Midodrine 10mg tab ORAL SCH ×3 (09:05→17:50)
[2017-10-06] MEDS: Heparin 5000 units/ml inj SUBQ SCH ×2 (09:06→21:40)
[2017-10-06 09:15] LABS: THYROID STIMULATING HORMONE 1.657 uiU/mL (0.358-3.740)
--- NOTE | 2017-10-06 10:00 | General Progress Note ---
Assessment/Plan Problem List: (1) Rhabdomyolysis due to statin therapy ICD Codes: M62.82 - Rhabdomyolysis SNOMED: 306321456, 417140400 (2) Orthostatic hypotension ICD Codes: I95.1 - Orthostatic hypotension SNOMED: 50341396 (3) Failure to thrive in adult ICD Codes: R62.7 - Adult failure to thrive SNOMED: 433965002 (4) Pacemaker ICD Codes: Z95.0 - Pacemaker SNOMED: 854567445 Status: stable, progressing Assessment/Plan holding statin. may try to re-introduce in the future ivf cards eval check pacer pt/ot consider short term ecf Subjective ROS Limited/Unobtainable: No Constitutional: Reports: malaise, weakness HEENT: Reports: no symptoms Cardiovascular: Reports: no symptoms Respiratory: Reports: no symptoms Gastrointestinal/Abdominal: Reports: no symptoms Genitourinary: Reports: no symptoms Neurologic/Psychiatric: Reports: no symptoms Endocrine: Reports: no symptoms Hematologic/Lymphatic: Reports: no symptoms Allergies: Coded Allergies: No Known Allergies (Unverified , 10/08/14) All Systems: reviewed and negative except above Subjective no complaints. confused at baseline. feels weak. CK normal now Objective Last 24 Hour Vital Signs Date Time Temp Pulse Resp B/P (MAP) Pulse Ox O2 Delivery O2 Flow Rate FiO2 10/06/17 09:05 76 135/73 10/06/17 09:05 76 135/73 10/06/17 08:03 97.7 76 21 135/73 97 Room Air 10/06/17 00:00 97.9 72 18 133/67 95 10/05/17 20:31 77 143/88 10/05/17 20:31 77 143/88 10/05/17 20:00 98.2 77 20 143/88 100 10/05/17 15:55 97.6 70 20 132/66 95 10/05/17 11:25 98.0 64 20 155/80 95 Intake and Output 10/05/17 10/06/17 19:00 07:00 Intake Total 1010 ml 450 ml Balance 1010 ml 450 ml Intake Oral 960 ml IV Total 50 ml 450 ml # Voids 5 3 # Bowel Movements 1 1 Laboratory Tests 10/06/17 05:13: Total Creatine Kinase 187, Thyroid Stimulating Hormone (TSH) 1.657 Height (Feet): 5 Height (Inches): 10.00 Weight (Pounds): 160 Objective General Appearance: WD/WN, alert Neck: supple Cardiovascular: normal rate, regular rhythm Respiratory/Chest: chest wall non-tender, lungs clear, normal breath sounds Abdomen: normal bowel sounds, non tender, soft, no organomegaly Edema: no edema noted Arm (L), no edema noted Arm (R), no edema noted Leg (L), no edema noted Leg (R), no edema noted Pedal (L), no edema noted Pedal (R), no edema noted Generalized Neurologic: alert, responsive MEENA DOTSON Oct 06, 2017 10:00
[2017-10-06 11:52] VITALS: BP 149/72
[2017-10-06 15:52] VITALS: BP 121/65
[2017-10-06 20:49] VITALS: BP 148/75
[2017-10-06 23:59] VITALS: BP 140/80
[2017-10-07 04:00] VITALS: BP 137/85
[2017-10-07 09:00] VITALS: BP 116/47
[2017-10-07] MEDS: Metoprolol 25mg tab ORAL SCH ×2 (09:00→20:38)
--- NOTE | 2017-10-07 09:21 | General Progress Note ---
Assessment/Plan Problem List: (1) Rhabdomyolysis due to statin therapy ICD Codes: M62.82 - Rhabdomyolysis SNOMED: 485573645, 214583337 (2) Orthostatic hypotension ICD Codes: I95.1 - Orthostatic hypotension SNOMED: 70700280 (3) Failure to thrive in adult ICD Codes: R62.7 - Adult failure to thrive SNOMED: 276316951 (4) Pacemaker ICD Codes: Z95.0 - Pacemaker SNOMED: 952512311 Assessment/Plan holding statin. may try to re-introduce in the future ivf cards eval check pacer pt/ot consider short term ecf Subjective ROS Limited/Unobtainable: No Constitutional: Reports: malaise, weakness HEENT: Reports: no symptoms Cardiovascular: Reports: no symptoms Respiratory: Reports: no symptoms Gastrointestinal/Abdominal: Reports: no symptoms Genitourinary: Reports: no symptoms Neurologic/Psychiatric: Reports: no symptoms Endocrine: Reports: no symptoms Hematologic/Lymphatic: Reports: no symptoms Allergies: Coded Allergies: No Known Allergies (Unverified , 10/08/14) All Systems: reviewed and negative except above Subjective no complaints. confused at baseline. feels weak. Objective Last 24 Hour Vital Signs Date Time Temp Pulse Resp B/P (MAP) Pulse Ox O2 Delivery O2 Flow Rate FiO2 10/07/17 09:00 98.2 72 18 116/47 10/07/17 04:00 98.4 73 18 137/85 96 10/06/17 23:59 98.7 77 18 140/80 98 10/06/17 21:32 85 148/75 10/06/17 21:32 85 148/75 10/06/17 20:49 99.0 85 18 148/75 99 10/06/17 15:52 97.3 78 21 121/65 97 Room Air 10/06/17 11:52 97.5 70 21 149/72 97 Room Air Intake and Output 10/06/17 10/07/17 19:00 07:00 Intake Total 1800 ml 550 ml Output Total 300 ml Balance 1500 ml 550 ml Intake Oral 1200 ml IV Total 600 ml 550 ml Output Urine Total 300 ml # Voids 5 4 Height (Feet): 5 Height (Inches): 10.00 Weight (Pounds): 160 Objective General Appearance: WD/WN, alert Neck: supple Cardiovascular: normal rate, regular rhythm Respiratory/Chest: chest wall non-tender, lungs clear, normal breath sounds Abdomen: normal bowel sounds, non tender, soft, no organomegaly Edema: no edema noted Arm (L), no edema noted Arm (R), no edema noted Leg (L), no edema noted Leg (R), no edema noted Pedal (L), no edema noted Pedal (R), no edema noted Generalized Neurologic: alert, responsive MEENA DOTSON Oct 07, 2017 09:21
[2017-10-07] MEDS: Amiodarone 200mg tab ORAL SCH (10:57)
[2017-10-07] MEDS: Tamsulosin 0.4mg cap ORAL SCH (10:59)
[2017-10-07] MEDS: Heparin 5000 units/ml inj SUBQ SCH ×2 (11:02→20:42)
[2017-10-07] MEDS: Midodrine 10mg tab ORAL SCH ×3 (11:05→18:17)
[2017-10-07 13:00] VITALS: BP_SYST 130; BP_SYST 132; BP_DIAS 73; BP_DIAS 86
--- NOTE | 2017-10-07 15:21 | Cardiology Report ---
APPROVED REPORT EKG Measurement Heart [id number] VT [id number] [id number] With chest pain presence, consider ACUTE ISCHEMIA Sinus rhythm with short VT Possible Inferior infarct, age undetermined T wave inversion in Lateral leads Abnormal ECG
[2017-10-07 16:00] VITALS: BP 128/60
[2017-10-07 20:00] VITALS: BP 131/60
[2017-10-08] VITALS: BP 123/59
[2017-10-08 04:00] VITALS: BP 111/52
[2017-10-08 07:05] LABS: BASOPHILS % (AUTO) 0.3 % (0.0-2.0); EOSINOPHILS % (AUTO) 4.3 % (0.0-3.0); LYMPHOCYTES % (AUTO) 7.7 % (20.0-45.0); MEAN CORPUSCULAR HEMOGLOBIN 31.8 PG (27.0-31.0); MEAN CORPUSCULAR HGB CONC 33.3 G/DL (32.0-36.0); MEAN CORPUSCULAR VOLUME 96 FL (80-99); MEAN PLATELET VOLUME 7.4 FL (6.5-10.1); MONOCYTES % (AUTO) 8.4 % (1.0-10.0); NEUTROPHILS % (AUTO) 79.2 % (45.0-75.0); PLATELET COUNT 164 K/UL (150-450); RED BLOOD COUNT 3.52 M/UL (4.70-6.10); RED CELL DISTRIBUTION WIDTH 12.8 % (11.6-14.8)
[2017-10-08 07:52] LABS: ALANINE AMINOTRANSFERASE 28 U/L (12-78); ALBUMIN/GLOBULIN RATIO 0.6 (1.0-2.7); ANION GAP 8 mmol/L (5-15); ASPARTATE AMINO TRANSFERASE 22 U/L (15-37); CALCIUM 7.6 MG/DL (8.5-10.1); CARBON DIOXIDE 23 MMOL/L (21-32); CHLORIDE 104 MMOL/L (98-107); CREATININE 0.9 MG/DL (0.55-1.30); MAGNESIUM 1.6 MG/DL (1.8-2.4); POTASSIUM 3.9 MMOL/L (3.5-5.1); SODIUM 135 MMOL/L (136-145); TOTAL PROTEIN 5.6 G/DL (6.4-8.2)
[2017-10-08 07:53] VITALS: BP 130/67
[2017-10-08] MEDS: Midodrine 10mg tab ORAL SCH ×3 (09:23→17:54)
[2017-10-08] MEDS: Tamsulosin 0.4mg cap ORAL SCH (09:23)
[2017-10-08] MEDS: Amiodarone 200mg tab ORAL SCH (09:24)
[2017-10-08] MEDS: Metoprolol 25mg tab ORAL SCH ×2 (09:24→20:17)
[2017-10-08] MEDS: Heparin 5000 units/ml inj SUBQ SCH ×2 (09:25→20:28)
[2017-10-08 11:17] VITALS: BP 121/66
[2017-10-08 15:50] VITALS: BP 124/63
[2017-10-08 20:00] VITALS: BP 115/53
[2017-10-09] VITALS: BP 122/61
[2017-10-09 04:00] VITALS: BP 150/61
[2017-10-09 07:37] VITALS: BP 152/92
[2017-10-09 08:00] VITALS: BP 152/92
[2017-10-09] MEDS: Tamsulosin 0.4mg cap ORAL SCH (08:26)
[2017-10-09] MEDS: Metoprolol 25mg tab ORAL SCH (08:26)
[2017-10-09] MEDS: Amiodarone 200mg tab ORAL SCH (08:26)
[2017-10-09] MEDS: Midodrine 10mg tab ORAL SCH ×3 (08:27→17:42)
[2017-10-09] MEDS: Heparin 5000 units/ml inj SUBQ SCH (08:30)
[2017-10-09 12:00] VITALS: BP 133/89
[2017-10-09 16:00] VITALS: BP 118/82
--- NOTE | 2017-10-11 13:56 | Discharge Summary ---
Discharge Summary Hospital Course Date of Admission Oct 04, 2017 at 14:33 Date of Discharge Oct 09, 2017 at 18:20 Admitting Diagnosis Failure to thrive/generalized weakness. HPI Robert Ceja Jr is a 82 year old male who was admitted on Oct 04, 2017 at 14: 33 for Failure To Thrive/Generalized Weakness Hospital Course [id number] Discharge Discharge Disposition Patient was discharged to SNF/Subacute Facility(03) Discharge Diagnoses: Iesha Greenberg NP Oct 11, 2017 13:56
--- NOTE | 2017-10-11 23:15 | Discharge Summary 2 SIG ---
DATE OF ADMISSION: 10/04/2017 DATE OF DISCHARGE: 10/09/2017 ATTENDING PHYSICIAN: Zen Dunn M.D. BRIEF HOSPITAL COURSE: The patient is an 82-year-old male with history of dementia, hypertension, orthostatic hypotension and BPH, was brought in by family with complaints of failure to thrive and generalized weakness. The patient according to paramedics he has been weak, dizzy, and unsteady. On evaluation at ED, EKG showed ST-segment changes. Blood work was essentially unremarkable. Chest x-ray showed no consolidation, effusion, or pneumothorax. He was admitted to medical floor for failure to thrive. Blood work showed elevated CK of 490. Statins were placed on hold. He was given PT and OT. He came in with traumatic injury on the elbow, left shoulder, and right lower leg. Wound care was rendered. Blood culture did not isolate any growth. He was provided a sitter for patient safety. He was eventually discharged to a long-term to complete rehabilitation. FINAL DIAGNOSES: 1. Rhabdomyolysis due to statin therapy. 2. Orthostatic hypotension. 3. Failure to thrive. 4. Pacemaker. 5. Traumatic injury on the left elbow, left shoulder, and right lower lateral leg present on admission. DISCHARGE MEDICATIONS: Refer to medication list. DISCHARGE DISPOSITION: The patient was discharged to [facility]. Lane Liang M.D. I have been assigned to dictate discharge summary on this account and I was not involved in the patient's management. Iesha Greenberg N.P. DR: ANKUSH JOB#: [id number] CC:
--- NOTE | 2017-10-21 01:45 | Progress Note ---
DATE: 10/07/2017 LATE ENTRY CARDIOLOGY PROGRESS NOTE SUBJECTIVE: The patient has no new complaints. Appetite is at baseline. He has no shortness of breath. Defibrillator interrogation was notable for appropriate sensing function and pacing mechanism with adequate battery life. OBJECTIVE: VITAL SIGNS: Blood pressure is 116/47, pulse 72, respirations 18. NECK: Supple. LUNGS: Clear. CARDIAC: Regular. Normal S1 and S2. ABDOMEN: Soft. EXTREMITIES: No edema. IMPRESSION: 1. Rhabdomyolysis due to statin drug, now resolved. 2. Hypertension, controlled. 3. Chronic systolic and diastolic congestive heart failure, compensated. 4. Cardiac defibrillator with stable function. 5. Rhabdomyolysis, resolved, off statin. PLAN: No resumption statin. Continue other cardiovascular medications without change. Discharge planning considering a snf facility in view of functional decline. Lane Liang M.D. DR: Donte JOB#: [id number] CC:
--- NOTE | 2017-10-21 01:45 | Progress Note ---
DATE: 10/06/2017 LATE ENTRY CARDIOLOGY PROGRESS NOTE SUBJECTIVE: The patient is more alert and interactive. Appetite fair. CK levels have normalized. OBJECTIVE: VITAL SIGNS: Blood pressure 135/73, pulse 76, respiratory rate 21, and afebrile. NECK: Supple. LUNGS: Clear. CARDIAC: Regular. Normal S1, S2. ABDOMEN: Soft. EXTREMITIES: No edema. LABORATORY DATA: CK is 187. IMPRESSION: 1. Resolving metabolic encephalopathy. 2. Statin associated rhabdomyolysis. 3. Chronic systolic and diastolic congestive heart failure. 4. Hypertensive heart disease. 5. History of orthostatic hypotension. 6. Cardiac defibrillator. PLAN: 1. Continuing cautious hydration. 2. No resumption of statin. 3. Defibrillator interrogation. 4. Discharge planning. 5. Titrate anti-failure regimen. Lane Liang M.D. DR: Donte JOB#: [id number] CC:
--- NOTE | 2017-10-21 01:45 | Progress Note ---
DATE: 10/05/2017 LATE ENTRY CARDIOLOGY PROGRESS NOTE SUBJECTIVE: The patient remains withdrawn and confused. OBJECTIVE: VITAL SIGNS: Blood pressure 140/57, heart rate 71, respiratory rate 20. CK levels are decreasing. The patient is off statin drug. Continues on IV fluids. NECK: Supple. LUNGS: Clear. CARDIAC: Regular rhythm and rate. Normal S1, paradoxically split S2. ABDOMEN: Soft. EXTREMITIES: No edema. ASSESSMENT: 1. Myositis. 2. Metabolic encephalopathy. 3. Statin associated rhabdomyolysis. 4. Orthostatic hypotension. 5. Cardiac defibrillator. 6. Chronic systolic and diastolic congestive heart failure. PLAN: 1. Cautious hydration. 2. Holding statin. 3. Defibrillator interrogation. 4. Titrate anti-failure regimen. Lane Liang M.D. DR: Donte JOB#: [id number] CC:
--- NOTE | 2017-10-21 02:30 | Progress Note ---
DATE: 10/08/2017 CARDIOLOGY PROGRESS NOTE SUBJECTIVE: The patient is at baseline mentation in function. He remains off statin drugs with stable metabolic parameters. OBJECTIVE: VITAL SIGNS: Blood pressure is 115/53, pulse 76, respiratory rate 18. No fevers. NECK: Supple. LUNGS: Clear. CARDIAC: Regular. Normal S1 and S2 with a fourth heart sound. EXTREMITIES: No edema. IMPRESSION: 1. No signs of acute congestive heart failure in the setting of chronic systolic and diastolic dysfunction. 2. Cardiac defibrillator with stable function. 3. Rhabdomyolysis due to statin therapy, resolved, off drug. 4. History of orthostatic hypotension, not presently noted, resolved. 5. Metabolic encephalopathy. PLAN: Continue current therapy. Physical and occupational therapy assessments to facilitate appropriate discharge disposition. Lane Liang M.D. DR: Donte JOB#: [id number] CC:
--- NOTE | 2017-10-21 02:45 | Progress Note ---
DATE: 10/09/2017 CARDIOLOGY PROGRESS NOTE SUBJECTIVE: Blood pressure today is increased. Magnesium level is slightly low at 1.6. OBJECTIVE: VITAL SIGNS: Blood pressure 150/60, pulse 70, and respiratory rate 18. LUNGS: Clear. CARDIAC: Regular. Normal S1 and S2 with a fourth heart sound. EXTREMITIES: Without edema. IMPRESSION: Stable for outpatient management. PLAN: 1. No resumption of statin therapy. 2. Maintain adequate oral intake. 3. Avoid tight blood pressure control due to orthostatic hypotension. 4. Defibrillator interrogation in three months as an outpatient. 5. Oral magnesium supplement. Lane Liang M.D. DR: Dotne JOB#: [id number] CC:
--- NOTE | 2017-10-21 04:30 | Consultation ---
DATE OF CONSULTATION: 10/04/2017 CARDIOLOGY CONSULTATION CONSULTING PHYSICIAN: Lane Liang M.D. REQUESTING PHYSICIAN: Zen Dunn M.D. REASON FOR CONSULTATION: Failure to thrive in the setting of severe cardiomyopathy with cardiac defibrillator. HISTORY OF PRESENT ILLNESS: This is an male, who is at the age of 82 lives with family members. He was brought into the emergency room today because of several days of anorexia, lethargy, and weakness. He has had body aches, but no fevers or chills. No nausea or vomiting. PAST MEDICAL HISTORY: Cardiomyopathy with cardiac defibrillator, hypertensive heart disease, chronic systolic and diastolic congestive heart failure, cerebrovascular disease with dementia, prostatic hypertrophy, history of orthostatic hypotension, and syncope. MEDICATIONS: Prior to admission, reviewed and reconciled. ALLERGIES: None. SOCIAL HISTORY: Negative for smoking, alcohol, or substance abuse. FAMILY HISTORY: Noncontributory. PHYSICAL EXAMINATION: VITAL SIGNS: Blood pressure 138/81, heart rate 87, respiratory rate 20, and afebrile. HEENT: Temporal wasting. Pale conjunctivae. Mucous membranes dry. NECK: Supple. LUNGS: Clear. CARDIAC: Regular rhythm and rate. Normal S1. Paradoxically split S2. ABDOMEN: Soft and nontender. No edema. Defibrillator pocket site clean and dry. LABORATORY DATA: Troponin 0.023. BUN 23 and creatinine 1. Potassium 4.6. Albumin 3. IMPRESSION: 1. Encephalopathy of unclear etiology. 2. Mild dehydration and hypovolemia. 3. Mild prerenal azotemia. PLAN: Cautious hydration. Follow up lab studies. Observe for signs of infection. Defibrillator interrogation will be arranged. Lane Liang M.D. DR: Brennan JOB#: [id number] CC:
== END 2017-10-09 18:20 | DRG 558 ==
LOC: EDBD → MERGE 12:35 → EMR 12:35 → 4E 14:33 → EDBEDREQ 15:27
DX: M62.82 Rhabdomyolysis (principal); R62.7 Adult failure to thrive; I95.1 Orthostatic hypotension; Z95.0 Presence of cardiac pacemaker; T50.995A Adverse effect of other drugs, medicaments and biological substances, initial encounter; S59.902A Unspecified injury of left elbow, initial encounter; X58.XXXA Exposure to other specified factors, initial encounter; S49.92XA Unspecified injury of left shoulder and upper arm, initial encounter; S89.91XA Unspecified injury of right lower leg, initial encounter; N40.0 Benign prostatic hyperplasia without lower urinary tract symptoms
CPT/HCPCS: 36415; 71010; 80053; 81003; 82550; 82553; 83605; 83735; 83880; 84100; 84443; 84484; 85025; 87040; 93005; 99285